=== PATIENT | male | born 1965 | race Caucasian/White ===

== ENCOUNTER 2016-12-05 05:59 | Inpatient (IN) ==
[2016-12-05] MEDS ORDERED: Albuterol 2.5 MG/3 ML NEBULIZER IH ONE (06:28)
[2016-12-05 06:29] LABS: Basophils # 0.1 K/mcL (0.0-0.2); Basophils % 0.6 %; Hematocrit 36.4 % (37.5-50.1); Hemoglobin 12.8 g/dL (12.9-16.9); Immature Granulocytes % 0.6 % (0-4); Lymphocytes # 1.9 K/mcL (0.6-4.6); Lymphocytes % 23.4 %; Mean Corpuscular HGB Conc 35.2 g/dL (31.6-35.5); Mean Corpuscular Hemoglobin 29.1 pg (28.0-33.3); Mean Corpuscular Volume 82.7 fL (83.0-100.0); Mean Platelet Volume 10.2 fL (9.4-12.4); Monocytes # 0.7 K/mcL (0.0-1.3); Neutrophils # 5.5 K/mcL (1.6-8.9); Platelet Count 217 K/mcL (140-400); Red Cell Distribution Width 12.6 % (11.5-14.5); Segmented Neutrophils % 67.4 %
--- NOTE | 2016-12-05 06:29 | Emergency Department Note ---
Disposition Clinical Impression: PAD (peripheral artery disease) Chest pain Qualifiers: Chest pain type: unspecified Qualified Code(s): R07.9 - Chest pain, unspecified Disposition: Admitted As Inpatient Condition: Good Referrals: NONE,PCP [Primary Care Provider] - Forms: ED Satisfaction Letter Time of Disposition: 06:54 Chest Pain HPI - General Chief Complaint: ED Chest Pain Stated Complaint: CP Time Seen by Provider: 12/05/16 06:01 Source: patient Mode of arrival: ambulatory Limitations: no limitations Vital Signs Reviewed: Yes Nursing Notes Reviewed: Yes - History of Present Illness HPI Narrative: Patient presents to the ED ambulatory with his with the chief complaint of chest pain and leg pain. Patient reports that he has a history of peripheral arterial disease and the right leg is "100% blocked off." He states that he was seen and evaluated in a hospital in [place] where they had ordered several tests and diagnosis. However, they were not going to treat him because he was moving to [place]. Denies any history of coronary artery disease. States that he woke up this morning and he felt a heaviness in his chest. Nonradiating, better or worse with nothing. Denies any associated diaphoresis, nausea, vomiting, abdominal pain or shortness of breath. Also complaining of a 3-4 month history of bilateral but right greater than left leg pain which is worse with exertion and better with rest. States it is getting to the point where he hurts even when he is not moving it. Denies fevers Severity scale (1-10): 3 - Related Data Allergies Allergy/AdvReac Type Severity Reaction Status Date / Time No Known Allergies Allergy Verified 12/05/16 06:04 All systems ED: reviewed and negative except as stated. Constitutional: Denies: fever Cardiovascular: Reports: chest pain Respiratory: Denies: dyspnea Gastrointestinal: Denies: abdominal pain, vomiting Musculoskeletal: Denies: back pain Neurological: Denies: headache Chest Pain PMH - Past Medical History Medical history: Reports: COPD, diabetes, hyperlipidemia, hypertension Psychiatric history: Reports: no psych history - Social History Smoking Status: Never smoker Alcohol use: Reports: none Drug use: Reports: marijuana Physical Exam - General Limitations: no limitations General appearance: alert, in no apparent distress - Head Head exam: atraumatic, normocephalic, normal inspection - Eye Eye exam: Present: normal appearance, PERRL, EOMI - ENT ENT exam: normal exam, normal oropharynx, mucous membranes moist - Neck Neck exam: Present: normal inspection, full ROM, trachea midline - Chest Chest inspection: Present: normal inspection, symmetric chest wall rise - Respiratory Respiratory exam: Present: wheezes. Absent: normal lung sounds bilaterally, respiratory distress, accessory muscle use - Cardiovascular Cardiovascular exam: Present: regular rate, normal rhythm, normal heart sounds - Abdominal Exam Abdominal exam: Present: soft, Non-Tender. Absent: tenderness, distention, guarding, rebound, rigidity - Extremities Exam Extremities exam: Present: normal inspection, full ROM. Absent: tenderness, normal capillary refill (delayed), pedal edema - Expanded Lower Extremity Exam Neurovascular/Tendon exam: Present: pulse deficit (PT/DP not palpable but are found with doppler). Absent: normal capillary refill (slightly delayed ) - Back Exam Back exam: Present: normal inspection, full ROM. Absent: tenderness - Neurological Exam Neurological exam: Present: alert, oriented X3 - Psychiatric Psychiatric exam: Present: normal affect, normal mood - Skin Skin exam: Present: warm, dry, intact, normal color Course Course Narrative: 51 year old male with cp. is a vasculopath with reported history of blocked R iliac artery. does have doppler pulses BLE. Strong BUE pulses. Chest heaviness will be further evaluated with lab/ekg/cxr. Patient will be admitted for further cardiac eval and vascular consult. Vital Signs Temperature 97.5 F L 12/05/16 05:59 Pulse Rate 72 12/05/16 05:59 Respiratory Rate 20 12/05/16 05:59 Blood Pressure 183/93 12/05/16 05:59 O2 Sat by Pulse Oximetry 96 12/05/16 05:59 Temperature 97.5 F L 12/05/16 05:59 Pulse Rate 63 12/05/16 06:45 Respiratory Rate 14 12/05/16 06:45 Blood Pressure 184/115 12/05/16 06:45 O2 Sat by Pulse Oximetry 99 12/05/16 06:45 Oxygen Delivery Oxygen Delivery Room Air Chest Pain - Medical Records Medical records reviewed: Yes I reviewed the patient's medical records. - Lab Data Lab results reviewed: Yes I reviewed the patient's lab results. Result diagrams: 12/05/16 06:23 12/05/16 06:23 Lab Results 12/05/16 12/05/16 12/05/16 Range/Units 06:06 06:23 06:23 WBC 8.2 (4.3-11.1) K/mcL RBC 4.40 (4.19-5.50) M/mcL Hgb 12.8 L (12.9-16.9) g/dL Hct 36.4 L (37.5-50.1) % MCV 82.7 L (83.0-100.0) fL MCH 29.1 (28.0-33.3) pg MCHC 35.2 (31.6-35.5) g/dL RDW 12.6 (11.5-14.5) % Plt Count 217 (140-400) K/mcL MPV 10.2 (9.4-12.4) fL Immature Gran % 0.6 (0-4) % Seg Neutrophils % 67.4 % Lymphocytes % 23.4 % Monocytes % 8.0 % Eosinophils % 0.0 % Basophils % 0.6 % Neutrophils # 5.5 (1.6-8.9) K/mcL Lymphocytes # 1.9 (0.6-4.6) K/mcL Monocytes # 0.7 (0.0-1.3) K/mcL Eosinophils # 0.0 (0.0-0.6) K/mcL Basophils # 0.1 (0.0-0.2) K/mcL PT 10.3 (9.4-12.1) Seconds INR 1.0 APTT 26.5 (26.0-36.0) Seconds Sodium (136-145) mEq/L Potassium (3.5-4.5) mEq/L Chloride (98-109) mEq/L Carbon Dioxide (19-29) mEq/L BUN (8-26) mg/dL Creatinine (0.72-1.25) mg/dL Est GFR ( Amer) (> 60) Est GFR (Non-Af Amer) (> 60) BUN/Creatinine Ratio (6-26) Glucose (70-99) mg/dL POC Glucose 179 H (58-89) Calculated Osmolality (280-300) Calcium (8.6-10.8) mg/dL Creatine Kinase (30-200) Units/L Troponin I (0-0.03) ng/mL 12/05/16 12/05/16 Range/Units 06:23 06:23 WBC (4.3-11.1) K/mcL RBC (4.19-5.50) M/mcL Hgb (12.9-16.9) g/dL Hct (37.5-50.1) % MCV (83.0-100.0) fL MCH (28.0-33.3) pg MCHC (31.6-35.5) g/dL RDW (11.5-14.5) % Plt Count (140-400) K/mcL MPV (9.4-12.4) fL Immature Gran % (0-4) % Seg Neutrophils % % Lymphocytes % % Monocytes % % Eosinophils % % Basophils % % Neutrophils # (1.6-8.9) K/mcL Lymphocytes # (0.6-4.6) K/mcL Monocytes # (0.0-1.3) K/mcL Eosinophils # (0.0-0.6) K/mcL Basophils # (0.0-0.2) K/mcL PT (9.4-12.1) Seconds INR APTT (26.0-36.0) Seconds Sodium 137 (136-145) mEq/L Potassium 3.6 (3.5-4.5) mEq/L Chloride 101 (98-109) mEq/L Carbon Dioxide 26 (19-29) mEq/L BUN 12 (8-26) mg/dL Creatinine 0.93 (0.72-1.25) mg/dL Est GFR ( Amer) > 60 (> 60) Est GFR (Non-Af Amer) > 60 (> 60) BUN/Creatinine Ratio 13 (6-26) Glucose 166 H (70-99) mg/dL POC Glucose (58-89) Calculated Osmolality 288 (280-300) Calcium 9.4 (8.6-10.8) mg/dL Creatine Kinase 164 (30-200) Units/L Troponin I 0.01 (0-0.03) ng/mL - Radiology Data Radiology results reviewed: Yes I reviewed the patient's radiology results. - EKG Data EKG attestation: Yes I reviewed and interpreted this EKG. EKG results narrative: Sinus rhythm, rate 66, kofi 185, QRS 96, QTC 404, left axis deviation, no acute ischemic changes. S.B.A.R. - S.B.A.R. Situation: Demographics, MOA Background: Presenting Complaint, Relevant PMH, Meds, & Allergies Assessment: Vital Signs, Course and respsone to treatment, Exam Concerns, Patient/Family Expectation, Pertinant Lab Results, Outstanding Labs Recommendation: Barrier(s) to disposition, Recommendation based on pending studies, treatments, or consults S.B.A.R. Report Given to: Dennis/Danny Attestation Statement - Attestation Attestation: I, Connor Alejo, examined this patient and my medical decision-making was reviewed with the [employer]/PA/Advanced Practice Nurse/Resident Physician. I agree with the documented findings, disposition and treatment plan as described except to the extent set forth below. 51-year-old male presents to emergency department for concerns of chest heaviness. Patient states symptoms started this morning upon waking. Denies diaphoresis, palpitations, syncope. Patient states he has dyspnea on exertion. Patient states he has pain to his bilateral lower extremities with minimal exertion which is chronic for him over the past few months. Patient states he was evaluated by a vascular surgeon in [place] he wanted to perform stenting of his distal aorta and iliac arteries however he states his insurance would not have covered [id number] procedures. Patient returns to [place] for further care and evaluation. No change in his lower extremities over the past week. Patient is mildly hypertensive. EKG showed normal sinus rhythm with rate of 66 without evidence of STEMI. We will obtained a chest x-ray, laboratory evaluation. Patient will be transferred to Dr. Collins pending laboratory evaluation, imaging, reevaluation and disposition.
[2016-12-05 06:32] LABS: Prothrombin Time 10.3 Seconds (9.4-12.1)
[2016-12-05 06:35] LABS: Activated Partial Thrombo Time 26.5 Seconds (26.0-36.0)
[2016-12-05 06:41] LABS: BUN/Creatinine Ratio 13 (6-26); Blood Urea Nitrogen 12 mg/dL (8-26); Calcium 9.4 mg/dL (8.6-10.8); Carbon Dioxide 26 mEq/L (19-29); Chloride 101 mEq/L (98-109); Creatine Kinase 164 Units/L (30-200); Glucose 166 mg/dL (70-99); Osmolality,Calculated 288 (280-300); Potassium 3.6 mEq/L (3.5-4.5); Sodium 137 mEq/L (136-145); eGFR For African Americans > 60 (> 60); eGFR For Non-African Americans > 60 (> 60)
[2016-12-05] MEDS ORDERED: Nitroglycerin 0.4 MG TAB.SUBL SL PRN (06:49)
[2016-12-05] MEDS ORDERED: Aspirin 325 MG TABLET PO ONE (06:50)
--- NOTE | 2016-12-05 08:01 | Emergency Department Note ---
Disposition Clinical Impression: PAD (peripheral artery disease) Chest pain Qualifiers: Chest pain type: unspecified Qualified Code(s): R07.9 - Chest pain, unspecified Disposition: Admitted As Inpatient Condition: Good Referrals: NONE,PCP [Primary Care Provider] - Forms: ED Satisfaction Letter Time of Disposition: 08:01 General Adult HPI - General Chief complaint: ED Chest Pain Stated complaint: CP Time Seen by Provider: 12/05/16 06:01 Source: patient Mode of arrival: ambulatory Limitations: no limitations - History of Present Illness Pain Scale: 3 - Related Data Home Medications Medication Instructions Recorded Confirmed Amlodipine Besylate 2.5 mg PO DAILY 12/05/16 12/05/16 Glimepiride [Amaryl] 4 mg PO BID 12/05/16 12/05/16 Insulin Human Regular 12/05/16 Lisinopril [Zestril] 40 mg PO DAILY 12/05/16 12/05/16 Metoprolol [Lopressor] 100 mg PO BID 12/05/16 12/05/16 Omeprazole Magnesium [Prilosec Otc] 20 mg PO DAILY 12/05/16 12/05/16 Pioglitazone [Actos] 45 mg PO DAILY 12/05/16 12/05/16 cloNIDine HCl [CloNIDine HCl] 0.1 - 0.2 mg PO HS PRN 12/05/16 12/05/16 hydroCHLOROthiazide 25 mg PO DAILY 12/05/16 12/05/16 [Hydrochlorothiazide] Allergies Allergy/AdvReac Type Severity Reaction Status Date / Time No Known Allergies Allergy Verified 12/05/16 06:04 Constitutional: Denies: fever Cardiovascular: Reports: chest pain Respiratory: Denies: dyspnea Gastrointestinal: Denies: abdominal pain, vomiting Musculoskeletal: Denies: back pain Neurological: Denies: headache Past Medical History - Past Medical History Medical history: Reports: COPD, diabetes, hyperlipidemia, hypertension Psychiatric history: Reports: no psych history - Social History Smoking Status: Never smoker Alcohol use: Reports: none Drug use: Reports: marijuana Physical Exam - General Limitations: no limitations General appearance: alert, in no apparent distress Course Course Narrative: Briefly care was signed out by the [facility] team Dr. Butler and Dr. Barron please see her documentation for history of physical decision making assessment plan. The patient had chest pain onset this morning, is he hemodynamically stable with no EKG changes, he was given nitroglycerin and this resolved his chest pain admitted for chest pain rule out, additionally he has claudication bilaterally, he just had a arterial duplex performed. [facility] Arterial duplex performed on 11/06/16: Impression #1diffuse atherosclerotic disease bilaterally #2 occluded right superficial femoral artery #3 no evidence of occlusion or significant stenosis on the left Impression: on the right side findings are suggestive of an flow disease this is likely the result of the occlusion of the superficial femoral artery demonstrated in the duplex exam on the left findings are suggestive of mild bilateral tibial disease. Vital Signs Temperature 97.5 F L 12/05/16 05:59 Pulse Rate 72 12/05/16 05:59 Respiratory Rate 20 12/05/16 05:59 Blood Pressure 183/93 12/05/16 05:59 O2 Sat by Pulse Oximetry 96 12/05/16 05:59 Temperature 97.5 F L 12/05/16 05:59 Pulse Rate 76 12/05/16 07:09 Respiratory Rate 10 12/05/16 07:09 Blood Pressure 157/98 12/05/16 07:09 O2 Sat by Pulse Oximetry 96 12/05/16 07:09 Oxygen Delivery Oxygen Delivery Room Air Medical Decision Making - Lab Data Lab results reviewed: Yes I reviewed the patient's lab results. Result diagrams: 12/05/16 06:23 12/05/16 06:23 Lab Results 12/05/16 12/05/16 12/05/16 Range/Units 06:06 06:23 06:23 WBC 8.2 (4.3-11.1) K/mcL RBC 4.40 (4.19-5.50) M/mcL Hgb 12.8 L (12.9-16.9) g/dL Hct 36.4 L (37.5-50.1) % MCV 82.7 L (83.0-100.0) fL MCH 29.1 (28.0-33.3) pg MCHC 35.2 (31.6-35.5) g/dL RDW 12.6 (11.5-14.5) % Plt Count 217 (140-400) K/mcL MPV 10.2 (9.4-12.4) fL Immature Gran % 0.6 (0-4) % Seg Neutrophils % 67.4 % Lymphocytes % 23.4 % Monocytes % 8.0 % Eosinophils % 0.0 % Basophils % 0.6 % Neutrophils # 5.5 (1.6-8.9) K/mcL Lymphocytes # 1.9 (0.6-4.6) K/mcL Monocytes # 0.7 (0.0-1.3) K/mcL Eosinophils # 0.0 (0.0-0.6) K/mcL Basophils # 0.1 (0.0-0.2) K/mcL PT 10.3 (9.4-12.1) Seconds INR 1.0 APTT 26.5 (26.0-36.0) Seconds Sodium (136-145) mEq/L Potassium (3.5-4.5) mEq/L Chloride (98-109) mEq/L Carbon Dioxide (19-29) mEq/L BUN (8-26) mg/dL Creatinine (0.72-1.25) mg/dL Est GFR ( Amer) (> 60) Est GFR (Non-Af Amer) (> 60) BUN/Creatinine Ratio (6-26) Glucose (70-99) mg/dL POC Glucose 179 H (58-89) Calculated Osmolality (280-300) Calcium (8.6-10.8) mg/dL Creatine Kinase (30-200) Units/L Troponin I (0-0.03) ng/mL 12/05/16 12/05/16 Range/Units 06:23 06:23 WBC (4.3-11.1) K/mcL RBC (4.19-5.50) M/mcL Hgb (12.9-16.9) g/dL Hct (37.5-50.1) % MCV (83.0-100.0) fL MCH (28.0-33.3) pg MCHC (31.6-35.5) g/dL RDW (11.5-14.5) % Plt Count (140-400) K/mcL MPV (9.4-12.4) fL Immature Gran % (0-4) % Seg Neutrophils % % Lymphocytes % % Monocytes % % Eosinophils % % Basophils % % Neutrophils # (1.6-8.9) K/mcL Lymphocytes # (0.6-4.6) K/mcL Monocytes # (0.0-1.3) K/mcL Eosinophils # (0.0-0.6) K/mcL Basophils # (0.0-0.2) K/mcL PT (9.4-12.1) Seconds INR APTT (26.0-36.0) Seconds Sodium 137 (136-145) mEq/L Potassium 3.6 (3.5-4.5) mEq/L Chloride 101 (98-109) mEq/L Carbon Dioxide 26 (19-29) mEq/L BUN 12 (8-26) mg/dL Creatinine 0.93 (0.72-1.25) mg/dL Est GFR ( Amer) > 60 (> 60) Est GFR (Non-Af Amer) > 60 (> 60) BUN/Creatinine Ratio 13 (6-26) Glucose 166 H (70-99) mg/dL POC Glucose (58-89) Calculated Osmolality 288 (280-300) Calcium 9.4 (8.6-10.8) mg/dL Creatine Kinase 164 (30-200) Units/L Troponin I 0.01 (0-0.03) ng/mL - Radiology Data Radiology results reviewed: Yes I reviewed the patient's radiology results. Chest X-Ray 12/05/16 06:05 IMPRESSION: Negative portable chest. D/ / Matt Will MD / Matt Will MD Interpreting Provider: Matt Will MD Attestation Statement - Attestation Attestation: I examined this patient and my medical decision-making was reviewed with the Resident Physician. I agree with the documented findings, disposition and treatment plan as described except to the extent set forth below. Patient signed out to us pending workup and admission. Patient had presented during the night with chest pain. He was pain-free on our evaluation. Only complaining of leg pain. He had been to a hospital in [place] a couple weeks ago was diagnosed with peripheral arterial disease. Plan. ABIs and arterial Dopplers reviewed. Cardiac workup here unremarkable. He is admitted to medicine for further cardiac workup.
--- NOTE | 2016-12-05 10:39 | Internal Med History&Physical ---
Date of Encounter: 12/05/16 Time of Encounter: 09:00 Assessment and Plan (1) Unstable angina pectoris Current visit: Yes Status: Acute Patient had new onset typical substernal/precordial chest pain that started at rest, lasted more than 30 minutes and eventually was relieved with nitroglycerin. Altogether pointed diagnosis of unstable angina. He does have severe peripheral arterial disease and therefore I suspect that he also has coronary artery disease. I will admit the patient to the hospital. Trend troponin. Place a heart monitor. Check echocardiogram. We will consult cardiology. I discussed the case with cardiology recommends starting heparin drip for both unstable angina and severe peripheral vascular disease. We will start daily aspirin, continue metoprolol, continue statin, start heparin drip per ACS protocol. He is at high risk for morbidity, mortality and complications due to continuous heparin infusion requiring frequent monitoring of blood coagulation parameters. (2) Superficial femoral artery occlusion Current visit: Yes Status: Acute There is no evidence of critical limb ischemia. He does have palpable pulses at both feet and skin is warm. There is no loss of sensation. BRENDEN and arterial Dopplers however revealed severe peripheral vascular disease particularly complete occlusion of the right superficial femoral vein. I will start a heparin drip per ACS protocol to prevent any further thrombosis and worsening leg ischemia. We will consult vascular surgery. (3) Essential hypertension Current visit: Yes Status: Acute This is uncontrolled. We will treat him with metoprolol, lisinopril and HCTZ. Hold amlodipine. I will hold clonidine for now which he was taking as needed due to possible interaction with beta blockers. We will monitor blood pressure closely. (4) PAD (peripheral artery disease) Current visit: Yes Status: Acute Start aspirin and statin. Consult vascular surgery. (5) Type 2 diabetes mellitus Current visit: Yes Status: Acute Check A1c. Diabetic diet. Start Levemir. Start NovoLog sliding scale. Stop oral antidiabetic medication. Qualifiers: Diabetes mellitus complication status: with circulatory complication Diabetes mellitus complication detail: with peripheral angiopathy without gangrene Diabetes mellitus extermination inspector insulin use: without extermination inspector use Qualified Code(s): E11.51 - Type 2 diabetes mellitus with diabetic peripheral angiopathy without gangrene (6) DVT prophylaxis Current visit: Yes Status: Acute Internal Medicine - H&P: HPI Chief complaint: Chest pain Admitted From: Emergency Dept Plans for Post Hospital Care: Home History of present illness: Mr. Dejesus is a 51 year old male with past medical history significant for hypertension and peripheral vascular disease who presented to the hospital for chest pain. He reports severe right leg pain and he had recently had vascular studies done at a hospital in [place] which found a blockage of one of the arteries in the right leg. This morning at 2 AM he woke up with moderate, 6/10 in intensity pressure-like left-sided chest pain not associated with shortness of breath and diaphoresis. He was brought to the hospital and was given sublingual nitroglycerin and DuoNeb which relieved the pain. Review of systems positive for right leg "claudication, chest pain, neck pain, shortness of breath and wheezing. Otherwise 10 systems reviewed and found negative. Past medical history: peripheral vascular disease, COPD, hypertension, type 2 diabetes Surgical history: Rotator cuff repair Family history: Patient's mother suffered with myocardial infarction at age 42 and at age 62 Social history: He quit smoking 6 years ago, denies alcohol abuse, denies IV drug use. Uses marijuana for pain. Past Med Surg Social Fam HX - Past Medical History Medical history: COPD, diabetes, hyperlipidemia, hypertension Psychiatric history: no psych history - Social History Smoking Status: Never smoker Alcohol use: none Drug use: marijuana Internal Medicine - H&P: Meds Amlodipine Besylate 2.5 mg PO DAILY 12/05/16 [History] Glimepiride [Amaryl] 4 mg PO BID 12/05/16 [History] Insulin Human Regular [HumuLIN R] 10 unit SQ DAILY PRN 12/05/16 [History] Lisinopril [Zestril] 40 mg PO DAILY 12/05/16 [History] Metoprolol [Lopressor] 100 mg PO BID 12/05/16 [History] Omeprazole Magnesium [Prilosec Otc] 20 mg PO DAILY 12/05/16 [History] Pioglitazone [Actos] 45 mg PO DAILY 12/05/16 [History] cloNIDine HCl [CloNIDine HCl] 0.1 - 0.2 mg PO HS PRN 12/05/16 [History] hydroCHLOROthiazide [Hydrochlorothiazide] 25 mg PO DAILY 12/05/16 [History] 3 Allergy/AdvReac Type Severity Reaction Status Date / Time No Known Allergies Allergy Verified 12/05/16 06:04 All Systems PM: A 10-system review of systems was performed and is negative for pertinent findings except as documented above in the HPI. - Constitutional Vitals: Temp Pulse Resp BP Pulse Ox 97.5 F L 68 15 170/109 95 12/05/16 05:59 12/05/16 09:42 12/05/16 09:42 12/05/16 09:42 12/05/16 09:42 General appearance: Present: A&O X 3, no acute distress - Eye Eye exam: Present: PERRL, conjuntiva pink, sclera anicteric Pupils: Present: PERRL - Respiratory Respiratory exam: Present: wheezes. Absent: accessory muscle use, rales, rhonchi - Cardiovascular Cardiovascular exam: Present: RRR, +S1, +S2. Absent: diastolic murmur, gallop, rubs, systolic murmur - GI/Abdominal GI/Abdominal exam: Present: normal bowel sounds, soft, no peritoneal signs. Absent: distended, tenderness - Extremities Exam Extremities exam: Present: warm, radial pulses palpable and symmetrical. Absent : calf tenderness, cyanotic, pedal edema Additional comments: Dorsalis pedis pulses palpable bilaterally but severely diminished on the right side. Femoral pulses are equal on both sides. - Skin Skin exam: Present: dry, intact, warm (Both feet warm and dry with no cyanosis. No skin changes.) Internal Med - H&P Results - Labs CBC & Chem 7: 12/05/16 06:23 12/05/16 06:23 - EKG Data -: EKG Interpreted by Myself EKG shows normal: sinus rhythm (66 bpm), axis, intervals, QRS complexes, ST-T waves Rate: normal - Impressions Vascular studies reviewed in the medical records from [facility] in [place], [place] Study performed on 11/06/2016 Bilateral lower extremity are part 1-year-old duplex examination: Right side common iliac and external iliac common femoral and profunda femoral artery normal and show normal flow velocities. The right superficial femoral artery is occluded. There is decreased flow to the tibial vessels and diffuse atherosclerotic disease throughout the right lower extremity. On the left side there is diffuse atherosclerotic disease. The common iliac external iliac common femoral profunda femoral superficial femoral and popliteal arteries show normal flow. The tibial vessels are patent patent. There is decreased flow velocity in the dorsalis pedis artery Impression: Diffuse atherosclerotic disease bilaterally Occluded right superficial femoral artery No evidence of occlusion or significant stenosis on the left. BRENDEN report from 11/06/2016: Impression: 1. right side findings suggestive of inflow disease consistent with superficial femoral artery occlusion demonstrated in the duplex study 2. Left-sided findings suggestive of mild bilateral tibial disease
[2016-12-05] MEDS ORDERED: Acetaminophen 325 MG TABLET PO PRN (10:53)
[2016-12-05] MEDS ORDERED: *HR* Morphine 2 MG/ML SYRINGE IVP PRN (10:53)
[2016-12-05] MEDS ORDERED: *HR* OxyCODONE Immed Rel 5 MG TABLET PO PRN (10:53)
[2016-12-05] MEDS ORDERED: Naloxone 0.4 MG/ML INJ IVP PRN (10:53)
[2016-12-05] MEDS ORDERED: Ondansetron 4 MG/2 ML VIAL IVP PRN (10:53)
[2016-12-05] MEDS ORDERED: D5% in Water 1,000 ML IVC PRN (10:58)
[2016-12-05] MEDS ORDERED: Dextrose Gel 15 GM PO PRN ×2 (10:58)
[2016-12-05] MEDS ORDERED: *HR* Dextrose 50 % in Water (Syg) 50 ML SYRINGE IVP PRN (10:58)
[2016-12-05] MEDS ORDERED: FLUARIX QUAD 2017-18 36MOS UP/PF 0.5 ML SYRINGE IM ONE (10:59)
[2016-12-05] MEDS ORDERED: 0.9 % Sodium Chloride 1,000 ML IVC SCH (11:00)
[2016-12-05] MEDS: Insulin LISPRO 300 UNITS/3 ML VIAL SQ SCH ×5 (12:07→20:32)
[2016-12-05] MEDS: Metoprolol 100 MG TABLET PO SCH ×2 (12:07→20:31)
[2016-12-05] MEDS: hydroCHLOROthiazide 25 MG TABLET PO SCH (12:07)
[2016-12-05] MEDS: Lisinopril 20 MG TABLET PO SCH (12:07)
--- NOTE | 2016-12-05 13:20 | Cardiology Consult Note ---
Date of Encounter: 12/05/16 Time of Encounter: 13:18 Assessment and Plan (1) Unstable angina pectoris Current Visit: Yes Status: Acute Symptoms concerning for unstable angina--chest pressure that woke him from sleep , relieved with nitro in ED. Reports worsening dyspnea on exertion. Multiple risk factors for CAD--Family hx, prior tobacco abuse, DM, HTN, known PAD. EKG reviewed--inferior leads flipped T waves. Initial troponin negative--trend for total of 3. Check echo to evaluate structure and function. Recommend [facility] tomorrow (pt ate lunch). R/B/A discussed. Pt agrees to proceed. ASA, Statin, BB. (2) PAD (peripheral artery disease) Current Visit: Yes Status: Acute Per pt, bilateral PAD diagnosed in [place] with vascular surgery planned. Will request records. ASA and Statin. (3) Essential hypertension Current Visit: Yes Status: Acute 170/109 at bedside. Increase Norvasc to 10mg daily. Continue BB, Lisinopril, HCTZ. Discussion w patient/family: The assessment and plan as outlined above was discussed with the patient and/or family members who expressed understanding and agreement. All questions were answered. Thank you for involving us in the care of your patient. Please call with any questions. I will discuss all the above with Dr. Aldridge and make changes as necessary. History of Present Illness Consult date: 12/05/16 Requesting physician: Harpreet Moore Consult reason: Chest pain Chief complaint: chest pain History of present illness: Mr. Dejesus is a 51 year old male with PMH of hypertension, DM, and peripheral vascular disease who presented to the hospital for chest pain. He reports severe right leg pain and he had recently had vascular studies done at a hospital in [place] which found blockages in both legs--tentatively scheduled to have ballooning/stenting of his lower extremities. He was referred to see cardiology prior to vascular surgery, not yet seen. This morning at 2 AM he woke up with moderate, 6/10 in intensity pressure-like left-sided chest pain. He was brought to the hospital and was given sublingual nitroglycerin and DuoNeb which relieved the pain. He reports worsening dyspnea since April. Activity also limited because of his claudication symptoms. He is a prior smoker , quit approximately 10 years ago. He reports his mother had his first [place] at age 42, at age 60 from another [place]. Initial troponin negative. Past Med Surg Social Fam HX - Past Medical History Medical history: COPD, diabetes, hyperlipidemia, hypertension, peripheral artery disease Psychiatric history: no psych history - Past Surgical History Surgical History: orthopedic, other - Social History Smoking Status: Never smoker Smokeless Tobacco Status: No Alcohol use: none Drug use: marijuana Medications and Allergies Amlodipine Besylate 2.5 mg PO DAILY 12/05/16 [History] Glimepiride [Amaryl] 4 mg PO BID 12/05/16 [History] Insulin Human Regular [HumuLIN R] 10 unit SQ DAILY PRN 12/05/16 [History] Lisinopril [Zestril] 40 mg PO DAILY 12/05/16 [History] Metoprolol [Lopressor] 100 mg PO BID 12/05/16 [History] Omeprazole Magnesium [Prilosec Otc] 20 mg PO DAILY 12/05/16 [History] Pioglitazone [Actos] 45 mg PO DAILY 12/05/16 [History] cloNIDine HCl [CloNIDine HCl] 0.1 - 0.2 mg PO HS PRN 12/05/16 [History] hydroCHLOROthiazide [Hydrochlorothiazide] 25 mg PO DAILY 12/05/16 [History] 3 Allergy/AdvReac Type Severity Reaction Status Date / Time No Known Allergies Allergy Verified 12/05/16 06:04 All Systems Review: A 10-system review of systems was performed and is negative for pertinent findings except as documented above in the HPI. - Constitutional Constitutional: fatigue - Cardiovascular Cardiovascular: as per HPI, chest pain at rest, claudication, dyspnea on exertion - Respiratory Respiratory: dyspnea Physical Examination Vital Signs, Last 4 Hours Pulse Resp BP Pulse Ox 12/05/16 09:42 68 15 170/109 95 Vital Signs Temp Pulse Resp BP Pulse Ox 12/05/16 09:42 68 15 170/109 95 12/05/16 08:21 63 14 152/111 95 12/05/16 07:09 76 10 157/98 96 12/05/16 06:45 63 14 184/115 99 12/05/16 06:38 20 95 12/05/16 05:59 97.5 F L 72 20 183/93 96 Intake and Output 12/04/16 12/05/16 12/05/16 23:59 07:59 15:59 Other: Weight 88.904 kg Blood Glucose* 179 156 Patient Weight 12/05/16 23:59 Weight 88.904 kg General: Conversant, No Apparent Distress HEENT: Atraumatic, Normocephaly, Mucus Membranes Moist Neck: No JVD, Normal carotid pulses Cardiac: Reg Rate and Rhythm, Normal S1 and S2, No Murmur Lungs: Normal Breath Sounds, No Wheeze, Rales, Rhonchi Neuro: Alert and responsive, No focal deficits noted Abdomen: Soft, Non-Tender Skin: No rashes noted on visualized skin Musculoskeletal: No Chest Wall Tenderness Extremities: No Clubbing, No Cyanosis, No Edema, Normal Pulses Results 12/05/16 06:23 12/05/16 06:23 Short CBC 12/05/16 Range/Units 06:23 WBC 8.2 (4.3-11.1) K/mcL Hgb 12.8 L (12.9-16.9) g/dL Hct 36.4 L (37.5-50.1) % Plt Count 217 (140-400) K/mcL Neutrophils # 5.5 (1.6-8.9) K/mcL BMP 12/05/16 Range/Units 06:23 Sodium 137 (136-145) mEq/L Potassium 3.6 (3.5-4.5) mEq/L Chloride 101 (98-109) mEq/L Carbon Dioxide 26 (19-29) mEq/L BUN 12 (8-26) mg/dL Creatinine 0.93 (0.72-1.25) mg/dL Glucose 166 H (70-99) mg/dL Calcium 9.4 (8.6-10.8) mg/dL Cardiac Enzymes 12/05/16 Range/Units 06:23 Troponin I 0.01 (0-0.03) ng/mL Impressions Chest X-Ray 12/05/16 06:05 IMPRESSION: Negative portable chest. D/ / Matt Will MD / Matt Will MD Interpreting Provider: Matt Will MD Active Medications Acetaminophen (Tylenol) 650 mg PO Q6HR PRN PRN Reason: Mild Pain (1-3) Stop: 06/06/17 10:54 Aspirin (Aspirin Ec) 81 mg PO DAILY [facility] Stop: 06/07/17 09:01 Dextrose/Water (Dextrose 50% (Syg)) 25 ml IVP AD PRN PRN Reason: Hypoglycemia Stop: 06/06/17 10:59 Glucagon (Glucagen) 1 mg IM ONCE PRN PRN Reason: Hypoglycemia Stop: 06/06/17 10:59 Glucose (Gluctose) 15 gm PO ONCE PRN PRN Reason: Hypoglycemia Stop: 06/06/17 10:59 Glucose (Gluctose) 30 gm PO ONCE PRN PRN Reason: Hypoglycemia Stop: 06/06/17 10:59 Heparin Sodium (Porcine) (Heparin) 5,000 unit SQ Q8HCO [facility] Stop: 06/06/17 14:01 Hydrochlorothiazide (Hydrochlorothiazide) 25 mg PO DAILY [facility] PRN Reason: Protocol Stop: 06/06/17 11:01 Last Admin: 12/05/16 12:07 Dose: 25 mg Sodium Chloride (0.9 % Sodium Chloride) 1,000 mls @ 100 mls/hr IVC .Q10H [facility] Stop: 12/05/16 20:59 Last Admin: 12/05/16 11:25 Dose: 100 mls/hr Dextrose (Dextrose 5%) 1,000 mls @ 100 mls/hr IVC .Q10H PRN PRN Reason: HYPOGLYCEMIA Stop: 06/06/17 10:59 Insulin Detemir (Levemir) 10 unit SQ HS [facility] Stop: 06/06/17 21:01 Insulin Human Lispro (Humalog) 4 units 0.05 units/kg (4 units) SQ TIDWM [facility] Stop: 06/06/17 12:01 Last Admin: 12/05/16 12:07 Dose: 4 units Insulin Human Lispro (Humalog) 0 units SQ ACHS [facility] PRN Reason: Protocol Stop: 06/06/17 12:01 Last Admin: 12/05/16 12:08 Dose: 2 units Lisinopril (Zestril) 40 mg PO DAILY [facility] Stop: 06/06/17 11:01 Last Admin: 12/05/16 12:07 Dose: 40 mg Metoprolol Tartrate (Lopressor) 100 mg PO BID [facility] Stop: 06/06/17 11:01 Last Admin: 12/05/16 12:07 Dose: 100 mg Morphine Sulfate (Morphine Sulfate) 2 mg IVP Q4HR PRN PRN Reason: Severe Pain (7-10) Stop: 06/06/17 10:54 Naloxone HCl (Narcan) 0.4 mg IVP Q2MIN PRN PRN Reason: Opioid Reversal Stop: 06/06/17 10:54 Nitroglycerin (Nitroglycerin) 0.4 mg SL Q5MIN PRN PRN Reason: Chest Pain Stop: 06/06/17 06:50 Omeprazole (Prilosec) 20 mg PO 0630 LISA Stop: 06/06/17 11:01 Last Admin: 12/05/16 12:12 Dose: 20 mg Ondansetron HCl (Zofran) 4 mg IVP Q8HR PRN PRN Reason: Nausea And Vomiting Stop: 06/06/17 10:54 Oxycodone HCl (Roxicodone) 5 mg PO Q6HR PRN PRN Reason: Moderate Pain (4-6) Stop: 06/06/17 10:54 - EKG Interpretation EKG results cardiology: personally reviewed (SR, inferior ST abnormalities) Consult Discharge Plan - Plan Referrals: NONE,PCP [Primary Care Provider] -
[2016-12-05] MEDS ORDERED: *HR* Heparin 5,000 UNIT/ML VIAL SQ SCH (14:00)
[2016-12-05] MEDS ORDERED: *HR* Heparin 5,000 UNIT/ML VIAL IVP PRN ×2 (15:11)
[2016-12-05] MEDS ORDERED: *HR* Heparin 5,000 UNIT/ML VIAL IVP ONE (15:11)
[2016-12-05] MEDS: Heparin 25,000 UNIT/500 ML D5W 25,000 UNIT/500 ML MLS IVC SCH (16:13)
[2016-12-05 16:41] LABS: Mean Corpuscular HGB Conc 35.1 g/dL (31.6-35.5); Mean Corpuscular Hemoglobin 29.3 pg (28.0-33.3); Mean Corpuscular Volume 83.3 fL (83.0-100.0); Mean Platelet Volume 10.3 fL (9.4-12.4); Platelet Count 216 K/mcL (140-400); Red Blood Count 4.44 M/mcL (4.19-5.50); Red Cell Distribution Width 12.8 % (11.5-14.5)
[2016-12-05 16:54] LABS: Prothrombin Time 11.2 Seconds (9.4-12.1)
[2016-12-05 16:56] LABS: Activated Partial Thrombo Time 26.2 Seconds (26.0-36.0)
--- NOTE | 2016-12-05 17:22 | Electrocardiograph Report ---
[place] 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
--- NOTE | 2016-12-05 19:10 | Vascular/Endovasc Consult Note ---
Date of Encounter: 12/05/16 Time of Encounter: 15:00 Assessment and Plan (1) Atherosclerosis of [place] arteries of extremities with intermittent claudication, bilateral legs Current Visit: Yes Status: Chronic The pathophysiology and natural history of peripheral vascular disease was discussed with the patient and all questions were answered. The patient reports disabling bilateral lower extremity claudication at 30 yards. He denies rest pain, ulceration or gangrene. He has a diminished pulse exam. His right BRENDEN is 0.60. His left BRENDEN is 0.54. His ABIs are consistent with moderate disease bilaterally. His arterial duplex reveals a right superficial femoral artery occlusion. He likely has bilateral inflow disease as well. Recommend that he begin aspirin 81mg daily. He has no evidence of acute limb threatening ischemia. Will await further evaluation and resolution of his acute chest pain. He will ultimately require an angiogram for further evaluation. 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 Dejesus is a 51 year old male with a history of hypertension and diabetes who present to the ER today with complaint of chest pain. During his evaluation , he reported disabling claudication. Vascular surgery was consulted for further evaluation. The patient reports that he was undergoing evaluation for claudication in [place], but is currently living in [place]. He reports claudication at 30 yards. He denies rest pain, ulceration or gangrene. He reports that his symptoms occur in his bilateral calves. He reports that his symptoms resolve after 10-15 minutes. His symptoms are worst when walking uphill. He currently deneis chest pain at rest, but reports chest pain with exertion. He denies shortness of breath. Past Med Surg Social Fam HX - Past Medical History Medical history: COPD, diabetes, hyperlipidemia, hypertension, peripheral artery disease Psychiatric history: no psych history - Past Surgical History Surgical History: orthopedic, other - Social History Smoking Status: Never smoker Smokeless Tobacco Status: No Alcohol use: none Drug use: marijuana Medications and Allergies Amlodipine Besylate 2.5 mg PO DAILY 12/05/16 [History] Glimepiride [Amaryl] 4 mg PO BID 12/05/16 [History] Insulin Human Regular [HumuLIN R] 10 unit SQ DAILY PRN 12/05/16 [History] Lisinopril [Zestril] 40 mg PO DAILY 12/05/16 [History] Metoprolol [Lopressor] 100 mg PO BID 12/05/16 [History] Omeprazole Magnesium [Prilosec Otc] 20 mg PO DAILY 12/05/16 [History] Pioglitazone [Actos] 45 mg PO DAILY 12/05/16 [History] cloNIDine HCl [CloNIDine HCl] 0.1 - 0.2 mg PO HS PRN 12/05/16 [History] hydroCHLOROthiazide [Hydrochlorothiazide] 25 mg PO DAILY 12/05/16 [History] 3 Allergy/AdvReac Type Severity Reaction Status Date / Time No Known Allergies Allergy Verified 12/05/16 06:04 All Systems Review: A 10-system review of systems was performed and is negative for pertinent findings except as documented above in the HPI. Exam Vital Signs, Last 4 Hours Temp Pulse Resp BP Pulse Ox 12/05/16 17:01 98.0 F 72 16 163/78 97 General: Present: Conversant, No Apparent Distress, Well nourished HEENT: Present: Atraumatic, Normocephaly, Trachea midline, Pupils equal Neck: Absent: JVD, Left Carotid bruit, Right Carotid bruit Cardiac: Present: Reg Rate and Rhythm, Normal S1 and S2, No Murmur Lungs: Present: Normal Breath Sounds, No Wheeze, Rales, Rhonchi Neuro: Present: Alert and responsive, No focal deficits noted, Motor nerves grossly intact, Sensory nerves grossly intact Abdomen: Present: Soft, Non-tender. Absent: Masses Vascular: Present: Normal capillary refill, Pulse, absent (bilateral popliteal dorsalis pedis and posterior tibial pulses), Pulse, diminished (bilateral femoral pulses 1+), Color/Temperature (warm). Absent: Clubbing, Cyanosis, Edema Consult Discharge Plan - Plan Referrals: NONE,PCP [Primary Care Provider] -
[2016-12-05 19:26] LABS: Hemoglobin A1C 6.7 %
[2016-12-05] MEDS: Insulin DETEMIR 100 UNIT/ML X5UNITS SQ SCH (20:32)
[2016-12-06 08:00] LABS: Basophils % 0.6 %; Hematocrit 37.6 % (37.5-50.1); Hemoglobin 13.2 g/dL (12.9-16.9); Immature Granulocytes % 0.6 % (0-4); Lymphocytes # 1.7 K/mcL (0.6-4.6); Lymphocytes % 26.9 %; Mean Corpuscular HGB Conc 35.1 g/dL (31.6-35.5); Mean Corpuscular Hemoglobin 29.1 pg (28.0-33.3); Mean Corpuscular Volume 82.8 fL (83.0-100.0); Mean Platelet Volume 10.7 fL (9.4-12.4); Monocytes # 0.5 K/mcL (0.0-1.3); Monocytes % 7.7 %; Neutrophils # 4.1 K/mcL (1.6-8.9); Platelet Count 204 K/mcL (140-400); Red Blood Count 4.54 M/mcL (4.19-5.50); Red Cell Distribution Width 12.8 % (11.5-14.5); Segmented Neutrophils % 64.2 %
[2016-12-06 08:22] LABS: BUN/Creatinine Ratio 11 (6-26); Blood Urea Nitrogen 9 mg/dL (8-26); Calcium 9.9 mg/dL (8.6-10.8); Carbon Dioxide 30 mEq/L (19-29); Chloride 101 mEq/L (98-109); Chol/HDL Ratio 4.5 (0-4.9); Cholesterol 162 mg/dL (< 200); Glucose 168 mg/dL (70-99); HDL Cholesterol 36 mg/dL (40-59); LDL Cholesterol,Calculated 92 mg/dL (0-99); Osmolality,Calculated 289 (280-300); Potassium 3.8 mEq/L (3.5-4.5); Sodium 138 mEq/L (136-145); Triglycerides 168 mg/dL (< 150); eGFR For African Americans > 60 (> 60); eGFR For Non-African Americans > 60 (> 60)
--- NOTE | 2016-12-06 08:57 | Internal Med Progress Note ---
Date of Encounter: 12/06/16 Time of Encounter: 08:00 - Assessment and plan (1) Unstable angina pectoris Current Visit: Yes Status: Acute Assessment and plan: He did have unstable angina and he is very high risk fro ACS with severe PAD, HTN and former smoker so far negative troponin Cont heparin gtt for now Cont ASA and Statin Card consuted Scheduled for cardiac cath later today (2) Superficial femoral artery occlusion Current Visit: Yes Status: Acute Assessment and plan: Reviewed arterial doppler studies - showed diffuse atherosclerosis disease b/l, more significant on Rt side. Occluded Rt superfical fem artery nticed But pt does not have any ischemic signs cont Heparin gtt.. Cont anti platelets Vascular surgery consulted Need further work up with Angiogram Since he is ging for cardiac cath now, he can have angigram done as an out pt will talk to vascular surgery (3) PAD (peripheral artery disease) Current Visit: Yes Status: Acute Assessment and plan: see above (4) Essential hypertension Current Visit: Yes Status: Chronic Assessment and plan: resumed all home meds (5) Atherosclerosis of [place] arteries of extremities with intermittent claudication, bilateral legs Current Visit: Yes Status: Chronic Assessment and plan: on ASA + Statin (6) Type 2 diabetes mellitus Current Visit: Yes Status: Chronic Assessment and plan: HbA1C 6.7 Cont Levemir + ISS Qualifiers: Diabetes mellitus complication status: with circulatory complication Diabetes mellitus complication detail: with peripheral angiopathy without gangrene 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 Dejesus is a 51 year old male with past medical history significant for hypertension and peripheral vascular disease who presented to the hospital for chest pain. He also reported severe right leg pain and he had recently had vascular studies done at a hospital in [place] which found a blockage of one of the arteries in the right leg. The day he came into ER at 2 AM he woke up with moderate, 6/10 in intensity pressure-like left-sided chest pain not associated with shortness of breath and diaphoresis. He was brought to the hospital and was given sublingual nitroglycerin and DuoNeb which relieved the pain. He was placed on Heparin gtt.. Now his CP completely resolved. However he still c/o b/l LE pain - Constitutional Vitals: Temp Pulse Resp BP Pulse Ox 97.6 F 71 20 160/90 93 12/06/16 06:49 12/06/16 06:49 12/06/16 06:49 12/06/16 06:49 12/06/16 06:49 General appearance: Present: A&O X 3, no acute distress - Head Head exam: Present: atraumatic, normal inspection - Respiratory Respiratory exam: Present: CTAB. Absent: accessory muscle use, rales, rhonchi, wheezes - Cardiovascular Cardiovascular exam: Present: RRR, +S1, +S2. Absent: diastolic murmur, gallop, rubs, systolic murmur - GI/Abdominal GI/Abdominal exam: Present: normal bowel sounds, soft, no peritoneal signs. Absent: distended, tenderness - Extremities Exam Extremities exam: Absent: calf tenderness, pedal edema, tenderness Additional comments: Pulses are palpable and diminished in b/l LE distally. No signs of ischemia noticed - Back Exam Back exam: Absent: CVA tenderness (L), tenderness, vertebral tenderness - Neurological Exam Neurological exam: Present: alert, oriented X3 - Psychiatric Psychiatric exam: Present: normal affect, normal mood Internal Medicine: Result - Labs CBC & Chem 7: 12/06/16 07:33 12/06/16 07:33 Labs: Short CBC 12/05/16 12/06/16 Range/Units 16:22 07:33 WBC 7.0 6.4 (4.3-11.1) K/mcL Hgb 13.0 13.2 (12.9-16.9) g/dL Hct 37.0 L 37.6 (37.5-50.1) % Plt Count 216 204 (140-400) K/mcL Neutrophils # 4.1 (1.6-8.9) K/mcL BMP 12/06/16 07:33 Sodium 138 Potassium 3.8 Chloride 101 Carbon Dioxide 30 H BUN 9 Creatinine 0.84 Glucose 168 H Calcium 9.9 Cardiac Enzymes 12/05/16 12/05/16 Range/Units 15:17 15:17 Troponin I 0.00 0.00 (0-0.03) ng/mL - ABG Interpretation ABG results: PT/INR, D-dimer PT 11.2 Seconds (9.4-12.1) 10/17/17 16:22 Consult Discharge Plan - Plan Referrals: NONE,PCP [Primary Care Provider] -
[2016-12-06] MEDS: Metoprolol 100 MG TABLET PO SCH ×2 (09:59→22:04)
[2016-12-06] MEDS: Lisinopril 20 MG TABLET PO SCH (09:59)
[2016-12-06] MEDS: hydroCHLOROthiazide 25 MG TABLET PO SCH (09:59)
[2016-12-06] MEDS: Aspirin Enteric Coated 81 MG Tablet PO SCH (09:59)
[2016-12-06] MEDS: amLODIPine 5 MG TABLET PO SCH (10:00)
[2016-12-06] MEDS: Insulin LISPRO 300 UNITS/3 ML VIAL SQ SCH ×7 (10:02→22:05)
[2016-12-06] MEDS: Heparin 25,000 UNIT/500 ML D5W 25,000 UNIT/500 ML MLS IVC SCH (12:12)
--- NOTE | 2016-12-06 13:04 | Pre-Sedation Evaluation ---
Pre-sedation evaluation - Pre-sedation checklist Date of procedure: 12/06/16 Procedure: Heart Cath Recent Vitals: Last Vital Signs Temp 97.9 F 12/06/16 11:31 Pulse 79 12/06/16 11:31 Resp 19 12/06/16 11:31 BP 174/89 12/06/16 11:31 Pulse Ox 93 12/06/16 11:31 H&P (including ROS) documented in medical record: Yes Previous reaction to sedatives/anesthetics: No Dietary Status: NPO after Midnight ASA Classification *see protocol: CLASS II-Mild systemic disease Plan of Care: Pt appropriate candidate for procedure/moderate/conscious sedation , Risks/benefits of procedure/sedation discussed w/ patient/family
--- NOTE | 2016-12-06 14:04 | Vascular/Endovas Progress Note ---
Date of Encounter: 12/06/16 Time of Encounter: 14:00 - Assessment and plan (1) Atherosclerosis of [place] arteries of extremities with intermittent claudication, bilateral legs Current Visit: Yes Status: Chronic The reports peripheral vascular disease with disabling claudication at 30 yards. He denies rest pain, ulceration or gangrene. His ABIs were repeated at [facility] His RABI is 0.71 and his LABI is 0.96. His RABI is consistent with a right superficial femoral artery occlusion. He will continue with aspirin 81mg daily. He has no evidence of acute limb threatening ischemia. He is scheduled for a left heart cath today. Echocardiogram reveals LVEF >60%. Will begin Cilostazol 100mg BID. He may then follow-up in vascular clinic for further evaluation after discharge. The patient was advised to begin a walking regimen. (2) Chest pain Current Visit: Yes Status: Acute No chest pain today. He is scheduled for a left heart cath. Qualifiers: Chest pain type: unspecified Qualified Code(s): R07.9 - Chest pain, unspecified (3) Essential hypertension Current Visit: Yes Status: Chronic (4) Type 2 diabetes mellitus Current Visit: Yes Status: Chronic Qualifiers: Diabetes mellitus complication status: with circulatory complication Diabetes mellitus complication detail: with peripheral angiopathy without gangrene Diabetes mellitus terminologist insulin use: without terminologist use Qualified Code(s): E11.51 - Type 2 diabetes mellitus with diabetic peripheral angiopathy without gangrene (5) Lumbar radiculopathy Current Visit: Yes Status: Chronic Further discussion with the patient illicits a description of symptoms of pins and needles in his bilateral feet at rest. He reports that these symptoms are intermittent and can be positional. He may have a lumbar radiculopathy. Alternatively, he could have a peripheral neuropathy. - Subjective Interval history: The patient reports that his chest pain has resolved. He states that he is scheduled for a left heart cath today. He denies rest pain today. He denies shortness of breath. Vital Signs, Last 4 Hours Temp Pulse Resp BP Pulse Ox 12/06/16 11:31 97.9 F 79 19 174/89 93 - Physical Examination General: Present: Conversant, No Apparent Distress HEENT: Present: Atraumatic, Pupils equal Neck: Absent: JVD Cardiac: Present: Reg Rate and Rhythm Lungs: Present: Normal Breath Sounds, No Wheeze, Rales, Rhonchi Neuro: Present: Alert and responsive, No focal deficits noted, Motor nerves grossly intact, Sensory nerves grossly intact Vascular: Present: Normal capillary refill, Pulse, absent (right popliteal and pedal pulses absent), Pulse, normal (Left). Absent: Cyanosis, Edema Abdomen: Present: Soft, Non-tender Skin: Present: No rashes noted on visualized skin Results 12/06/16 17:06 12/06/16 17:06 Lab Results, Last 24 hours 12/05/16 12/05/16 12/05/16 15:17 15:17 16:22 WBC 7.0 Hgb 13.0 Hct 37.0 L Plt Count 216 INR APTT Sodium Potassium Chloride Carbon Dioxide BUN Creatinine Glucose Calcium Troponin I 0.00 0.00 12/05/16 12/05/16 12/06/16 16:22 22:11 07:33 WBC 6.4 Hgb 13.2 Hct 37.6 Plt Count 204 INR 1.0 APTT 26.2 41.0 H D Sodium Potassium Chloride Carbon Dioxide BUN Creatinine Glucose Calcium Troponin I 12/06/16 12/06/16 12/06/16 07:33 07:33 13:11 WBC Hgb Hct Plt Count INR APTT 83.0 H D 72.2 H Sodium 138 Potassium 3.8 Chloride 101 Carbon Dioxide 30 H BUN 9 Creatinine 0.84 Glucose 168 H Calcium 9.9 Troponin I - Imaging / Other Tests Non Invasive Vascular Testing: report reviewed (1) Right lower extremity waveform demonstrates moderately diminished hemodynamics. 2) Right Ankle Brachial Index demonstrates moderately occlusive disease. 1) Left lower extremity waveform demonstrates mildly diminished hemodynamics. 2) Left Ankle Brachial Index demonstrates mildly occlusive disease.), image reviewed Consult Discharge Plan - Plan Referrals: NONE,PCP [Primary Care Provider] -
[2016-12-06] MEDS ORDERED: Verapamil 5 MG/2 ML VIAL ONE (14:11)
[2016-12-06] MEDS ORDERED: 0.9 % Sodium Chloride 1,000 ML ONE ×2 (14:12→15:15)
[2016-12-06] MEDS ORDERED: Nitroglycerin 1,000 MCG/10 ML VIAL IV ONE (14:12)
[2016-12-06] MEDS ORDERED: *HR* Heparin 10,000 UNIT/10 ML VIAL ONE (14:12)
[2016-12-06] MEDS ORDERED: Heparin 1,000 UNITS/500 mL NS 500 ML ONE (14:12)
[2016-12-06] MEDS ORDERED: *HR* FentaNYL (PF) 100 MCG/2 ML VIAL ONE (15:18)
[2016-12-06] MEDS ORDERED: *HR* Midazolam HCl 2 MG/2 ML VIAL ONE (15:18)
[2016-12-06] MEDS ORDERED: Nitroglycerin Spray 4.9 GM BOTTLE ONE (15:37)
[2016-12-06] MEDS ORDERED: Tirofiban 12.5 MG/250ML 12.5 MG/250 ML BAG ONE (15:46)
[2016-12-06] MEDS ORDERED: D5% in Water (Mini-Bag+) 100 ML IVPB ONE (15:52)
[2016-12-06] MEDS ORDERED: *HR* Ticagrelor 90 MG TABLET ONE (16:18)
[2016-12-06] MEDS ORDERED: Acetaminophen 325 MG TABLET PO PRN (16:23)
[2016-12-06] MEDS ORDERED: 0.9 % Sodium Chloride 1,000 ML IVC SCH (16:30)
[2016-12-06] MEDS ORDERED: Tirofiban 12.5 MG/250ML 12.5 MG/250 ML BAG IVC SCH (16:30)
--- NOTE | 2016-12-06 16:43 | Invasive Diagnostic Lab Proc ---
Name: Matthew Dejesus Date of Study: 12/06/2016 Date: 1965 Ht: 66.9in Medical Record#: [id number] Age: 51 Wt: 189.60lb Gender: Male BSA: 1.98 Order #: [id number] BMI: 29.76 Physicians Procedure Physician: Geraldo Davis MD Referring MD: Referring MD: Staff Name Position Time In Jessi Sawyer RT (R) Monitor 03:01 PM Mckenna Gunn RT Scrub 03:01 PM Akilah Gipson RN Artistic Associate 03:01 PM Catie Araujo RN Artistic Associate 03:01 PM Indications Indication Unstable Angina Procedures Performed Procedure L HRT ARTERY/VENTRICLE ANGIO Pre-Procedure Checklist Informed consent is complete signed and on chart. H&P is on chart. ID band is on and ID verified with patient. Patient NPO for procedure The procedure was described for the patient and questions were answered. ECG is on chart. Plan of Care Patient will tolerate the procedure without complications. Adequate level of comfort will be maintained. Hemodynamics will remain stable Patient will recover from procedure without complications. Respiratory function will be maintained. Cardiac rhythm will remain stable. Patient temperature will be maintained. Patient and/or family have verbalized understanding of the procedure. Patient Education Chief Complaint/Reason for Test: Cardiac Cath Developmental Category: Adult (18-64 years) Developmentally Appropriate for Age: Yes Learning Barriers: None Education Needs: Procedure Education Method: Verbal Information Taught: Cardiac Cath Educational Evaluation: Able to repeat information Intravenous Access Time IV Size Location DC'd Fluid/Drip Rate Units RN 18g 1 02/22" Patent On Arrival Lt Antecubital 0.9NaCl Allergies No Known Allergies Vital Signs Time BP (mmHg) HR (bpm) O2 Sat. RR (bpm) LOC 160 / 90 71 93 % 20 03:27 PM / % 5 = Fully awake and oriented or at pre-proc level 03:27 PM / % 5 = Fully awake and oriented or at pre-proc level 03:43 PM / % 4 = Oriented but drowsy 03:58 PM / % 5 = Fully awake and oriented or at pre-proc level 03:24 PM 196 / 108 71 99 % 36 03:25 PM 175 / 110 65 99 % 9 03:28 PM 171 / 106 66 95 % 16 03:33 PM 152 / 93 64 94 % 13 03:38 PM 159 / 101 63 96 % 16 03:43 PM 156 / 92 59 96 % 13 03:48 PM 156 / 90 62 96 % 11 03:53 PM 157 / 98 64 96 % 17 03:58 PM 165 / 98 65 96 % 13 04:03 PM 171 / 107 63 97 % 16 04:08 PM 183 / 102 59 98 % 14 04:14 PM 181 / 110 59 98 % 16 04:19 PM 185 / 110 65 100 % 23 04:24 PM 180 / 112 66 98 % 16 04:13 PM / % 5 = Fully awake and oriented or at pre-proc level Procedural Medications Time Medication Dose Units Method Given By 03:27 PM Oxygen 2 L/min nasal cannula Akilah Gipson RN 03:27 PM Versed 1 mg Intravenous Akilah Gipson RN 03:27 PM Fentanyl 50 mcg Intravenous Akilah Gipson RN 03:29 PM Lidocaine 2% 10 ml Subcutaneous MoussKashif salcido MD 03:31 PM Versed 0.5 mg Intravenous Akilah Gipson RN 03:31 PM Fentanyl 25 mcg Intravenous Akilah Gipsno RN 03:34 PM Lidocaine 2% 9 ml Subcutaneous MoussKashif salcido MD 03:37 PM Nitroglycerin 0.4 mg Sublingual Catie Araujo RN 03:41 PM Heparin 500 units Intravenous Akilah Gipson RN 03:46 PM Heparin 4000 units Intravenous Akilah Gipson RN 03:51 PM Aggrastat Bolus: 46 ml Intravenous Akilah Gipson RN 03:51 PM Aggrastat 12.5mg/250ml 16.5 ml/hr Intravenous Akilah Gipson RN 03:54 PM Ancef 1 gram Intravenous Akilah Gipson RN 04:12 PM Nitroglycerin 0.4 mg Sublingual Akilah Gipson RN 04:14 PM Hydralazine 10 mg Intravenous Catie Araujo RN 04:22 PM Nitroglycerin 0.4 mg Sublingual Catie Araujo RN 04:22 PM Brilinta 180 mg Orally Akilah Gipson RN ASA Classification: CLASS II- Mild systemic disease (i.e. well-controlled diabetes, hypertension, asthma, cigarette smoking) Paxton Score Preprocedure Postprocedure Activity 2- Moves 4 extremities sustained head lift Activity 2- Moves 4 extremities sustained head lift Circulation 2- SBP +/= 20 points of pre-anesthetic level Circulation 2- SBP +/= 20 points of pre-anesthetic level Consciousness 2- Awake and alert oriented x 3 Consciousness 2- Awake and alert oriented x 3 O2 Saturation 2- Able to maintain O2 satruation of 92% on room air O2 Saturation 2- Able to maintain O2 satruation of 92% on room air Respiratory 2- Able to deep breathe and cough well Respiratory 2- Able to deep breathe and cough well Total Score 10 Total Score 10 Contrast Agent: Isovue Diagnostic Contrast: 171 ml Total Contrast: 171 ml Fluoro Dose: 1211 mGy Activated Clotting Time Time Seconds to Clot 03:40 PM 137 Procedure Log Time Note Enter By 03:01 PM Jessi Sawyer RT (R) Position: Monitor Time in: : [facility] 03: PM Mckenna Gunn RT Position: Scrub Time in: : [facility] 03:01 PM Akilah Gipson RN Position: Artistic Associate Time in: : [facility] 03:01 PM Catie Araujo RN Position: Artistic Associate Time in: 15: [facility] 03:01 PM Patient charges- Angio tray pack, Navilyst 3mm J, Pulse Oximetry and ACIST tubing and transducer [facility] 03:01 PM IV Supplies used: J loop Angio Cath. [facility] 03:09 PM CathStat 03:23 PM Vitals capture started with the following parameters, Patient=Adult, Interval=5 min, Initial Uxunoxeg=474 mmHg, Deflation Rate=5 mmHg, Cuff placed on Right Arm 03:24 PM HR=71 bpm, MPUB=660/108 mmhg, SpO2=99 %, Resp=36 B/min 03:25 PM [ Start or Stop Vital ] 03:25 PM NIBP STAT measurement started. 03:25 PM Pt arrived to [employer] 1 at 15:25 [facility] 03:25 PM HR=65 bpm, YLYU=030/110 mmhg, SpO2=99.0 %, Resp=9 B/min, Comment=NSR 03:26 PM Patient arrived at 15:26 with Heparin Intravenous drip @ dc'd on arrival to lab ml/hr [facility] 03:26 PM Hair removed from procedure site in holding area using clippers. Bilateral groin prepped with Chloraprep by Catie Araujo RN, safety strap applied then patient was draped. Skin intact. PM Physician arrived 15: PM ASA Class CLASS II- Mild systemic disease (i.e. well-controlled diabetes, hypertension, asthma, cigarette smoking) [facility] PM Meet and tashia completed PM Sign in performed according to hospital policy. [facility] PM Procedure start 15: PM Case Start PM Time: 15: Oxygen on at 2 L/min per nasal cannula by Akilah Gipson RN [facility] PM Time: 15: Versed 1 mg Intravenous Given by [facility]ilah [facility]ipson [facility] PM Time: 15: Fentanyl 50 mcg Intravenous Given by Akilah Gipson [facility] PM Time: 15: Patient comfortable and pain free: Yes PM Time: 15:LOC: 5 = Fully awake and oriented or at pre-proc level PM Clinical Presentation: Unstable angina PM HR=66 bpm, NYJX=675/106 mmhg, SpO2=95.0 %, Resp=16 B/min, Comment=NSR 03: PM Pressure channel 2 zero failed. : PM Pressure channel 2 zeroed. : PM Time out performed according to hospital policy PM Time: 15:29 10 ml Lidocaine 2% to right groin Subcutaneous Given by Geraldo Davis MD [facility]: PM Micro-Introducer Kit utilized for sheath placement PM Time: 15: Versed 0.5 mg Intravenous Given by Akilah Gipson RN [facility] PM Time: 15: Fentanyl 25 mcg Intravenous Given by Akilah Gipson RN [facility] :33 PM image obtained of groin. calcification noted. wire and micropuncture sheath removed. pressure held. : PM HR=64 bpm, XKYN=079/93 mmhg, SpO2=94.0 %, Resp=13 B/min, Comment=NSR 03:34 PM prepping left groin for access :35 PM Time: 15:34 9 ml Lidocaine 2% to left groin Subcutaneous Given by Geraldo Davis MD dspell 03:36 PM Access obtained by percutaneous puncture. 6Fr 10cm Terumo Bradford sheath placed in left Femoral artery. [id number] dspellman 03:37 PM contrast injected, images obtained of the left groin dspell 03:37 PM Time: 15:37 Nitroglycerin 0.4 mcg Sublingual Given by Catie Araujo RN dspsiobhan 03:38 PM 5Fr FR 4 catheter inserted over the wire [facility] dspellman 03:38 PM 0.035 145cm Navilyst 3mmJ wire [id number] dspellman 03:38 PM Recorded Pressure: Ao, HR=63, Condition=Condition 1 (Aorta) Ao 166/95/124 03:38 PM HR=63 bpm, CEMW=042/101 mmhg, SpO2=96.0 %, Resp=16 B/min, Comment=NSR 03:39 PM RCA angiography performed in multiple views. dspell 03:39 PM Catheter removed dspell 03:39 PM 5Fr FL 4 catheter inserted over the wire [facility] dspell 03:40 PM At 15:40 the ACT was 137 seconds. dspell 03:40 PM LCA angiography performed in multiple views. dspell 03:41 PM Recorded Pressure: Ao, HR=61, Condition=Condition 1 (Aorta) Ao 156/88/113 03:41 PM Time: 15:41 Heparin 500 units Intravenous Given by Akilah Gipson RN dspvesta 03:43 PM Time: 15:27LOC: 5 = Fully awake and oriented or at pre-proc level dspell:43 PM Time: 15:27 Patient comfortable and pain free: Yes dspell 03:43 PM Coronary Dominance: Left dspell 03:43 PM HR=59 bpm, OVSU=226/92 mmhg, SpO2=96.0 %, Resp=13 B/min, Comment=NSR 03:46 PM Lesion found in Mid LAD. Pre Stenosis: 70 Pre AGUSTÍN Flow: 3: Complete and Brisk Flow/Perfusion dspell:46 PM Time: 15:46 Heparin 4000 units Intravenous Given by Akilah Gipson RN 03:46 PM Lesion found in Proximal LAD. Pre Stenosis: 25 Pre AGUSTÍN Flow: 3: Complete and Brisk Flow/Perfusion dspellman 03:46 PM Lesion found in Distal Circumflex. Pre Stenosis: 50 Pre AGUSTÍN Flow: 3: Complete and Brisk Flow/Perfusion dspellman 03:47 PM PCI Status Urgent dspellman 03:47 PM PCI Indication: PCI for high risk Non-STEMI or unstable angina dspellman 03:48 PM Recorded Pressure: Ao, HR=64, Condition=Condition 1 (Aorta) Ao 150/88/113 03:48 PM HR=62 bpm, EZFT=774/90 mmhg, SpO2=96.0 %, Resp=11 B/min, Comment=NSR 03:50 PM PCI lesion in Mid LAD. dspellman 03:50 PM 6Fr XB LAD 3.5 Cordis guide catheter was used to cannulate the PCI vessel successfully. reused? No dspellman 03:50 PM .014 [employer] [place] 180cm guide wire across target lesion- successful. reused? No dspellman 03:50 PM Inflation device was opened. dspell 03:51 PM Time: 15:51 Aggrastat Bolus: 46 ml Intravenous Given by Akilah Gipson RN Rowe pump dspell 03:51 PM Time: 15:51 Aggrastat 12.5mg/250ml 16.5 ml/hr Intravenous Given by Akilah Gipson RN Rowe pump dspellman 03:52 PM 2.0 mm x 12 mm Emerge Monorail balloon across target lesion- successful. reused? No dspellman 03:52 PM Balloon inflated @ 6 jocelyne for 7 seconds dspellman 03:53 PM Balloon inflated @ 6 jocelyne for 5 seconds dspellman 03:53 PM HR=64 bpm, KQAQ=850/98 mmhg, SpO2=96.0 %, Resp=17 B/min, Comment=NSR 03:54 PM Time: 15:54 Ancef 1 gram Intravenous Given by Akilah Gipson RN dspsiobhan 03:55 PM Balloon catheter removed intact. dspellman 03:55 PM 2.25mm x 20mm Synergy drug-eluting stent across target lesion- successful Lot #[id number] dspellman 03:56 PM Stent deployed @ 11 jocelyne for 4 seconds dspellman 03:57 PM Stent balloon reinflated @ 16 jocelyne for 9 seconds dspellman 03:57 PM Recorded Pressure: Ao, HR=57, Condition=Condition 1 (Aorta) Ao 135/37/79 03:57 PM Stent delivery system removed intact. dspellman 03:57 PM wire back dspell 03:58 PM Time: 15:43LOC: 4 = Oriented but drowsy dspellman 03:58 PM HR=65 bpm, CNAL=683/98 mmhg, SpO2=96.0 %, Resp=13 B/min, Comment=NSR 03:59 PM Time: 15:43 Patient comfortable and pain free: Yes dspellman 04:00 PM 2.5 mm x 12mm NC Trek Rx balloon across target lesion- successful. reused? No dspellman 04:03 PM Recorded Pressure: Ao, HR=60, Condition=Condition 1 (Aorta) Ao 169/100/130 04:03 PM HR=63 bpm, RJHP=401/107 mmhg, SpO2=97.0 %, Resp=16 B/min, Comment=NSR 04:03 PM Balloon inflated @ 12 jocelyne for 8 seconds dspellman 04:04 PM Balloon inflated @ 6 jocelyne for 4 seconds dspellman 04:05 PM Balloon catheter removed intact. dspellman 04:05 PM Recorded Pressure: Ao, HR=56, Condition=Condition 1 (Aorta) Ao 175/91/123 04:07 PM 2.5 mm x 8mm NC Emerge balloon across target lesion- successful. reused? No dspellman 04:08 PM Balloon inflated @ 16 jocelyne for 10 seconds dspellman 04:08 PM HR=59 bpm, UODD=818/102 mmhg, SpO2=98.0 %, Resp=14 B/min 04:09 PM Balloon inflated @ 16 jocelyne for 10 seconds dspellman 04:09 PM Balloon inflated @ 14 jocelyne for 6 seconds dspellman 04:10 PM Balloon inflated @ 18 jocelyne for 8 seconds dspellman 04:10 PM Guide catheter removed intact. dspellman 04:10 PM Guide wire removed intact. dspell 04:11 PM Procedure completed at 16:11 dspellman 04:12 PM Time: 16:12 Nitroglycerin 0.4 mcg Intracoronary Given by Akilah Gipson RN dspell 04:12 PM Arterial sheath pulled, Angio-seal closure device used and was Successful S/N. dspell 04:13 PM Arterial sheath pulled, Angio-seal closure device used and was Successful S/N [id number]. dspellman 04:13 PM Post ECG NSR dspellman 04:14 PM HR=59 bpm, FBGZ=534/110 mmhg, SpO2=98.0 %, Resp=16 B/min, Comment=NSR 04:14 PM Time: 16:14 Hydralazine 10 mg Intravenous Given by Catie Araujo RN 04:16 PM Time: 15:59 Patient comfortable and pain free: Yes 04:17 PM Sign out completed: Radiation Dose 1211.36 mGy Fluoro Time: 14.5 Isovue 370 - 200ml contrast 171 ml given by Geraldo Davis MD. Complications: NoneCardiac Rehab Consult needed: YesConfirmed administered medications: Yes 04:18 PM Isovue 370 - 200ml,1 Bottle(s) used. dspell 04:19 PM Post ECG NSR 04:19 PM Post Blood Pressure 181/110 dspell 04:19 PM HR=65 bpm, VWUN=409/110 mmhg, HuE6=721.0 %, Resp=23 B/min, Comment=NSR 04:19 PM 16:19 Post Pulses Bilateral DP & PT Doppler dspell 04:20 PM Information taught Cardiac Cath, PCI, and Angioseal dspell 04:20 PM Education needs Procedure dspell 04:20 PM Learning barriers :None ell 04:20 PM Education Methods Verbal ell 04:20 PM Education evaluation Able to repeat information dspell 04:21 PM Family placed in No family available. dspell 04:22 PM Time: 16:22 Nitroglycerin 0.4 mcg Sublingual Given by Catie Araujo RN 04:22 PM Time: 16:22 Brilinta 180 mg Orally Given by Akilah Gipson RN 04:24 PM HR=66 bpm, VRVV=320/112 mmhg, SpO2=98.0 %, Resp=16 B/min, Comment=NSR 04:25 PM Site status No bleeding/hematoma - Lt Groin as reported by Mckenna Gunn RT at 16:25 dspell 04:25 PM Opsite applied dspell 04:25 PM Delay to floor No dspell 04:25 PM Complications: None dspell 04:25 PM Fluoro Time: 14.5 dspell 04:25 PM Isovue 370 - 200ml contrast 171 ml given by Geraldo Davis MD. diana 04:26 PM Radiation Dose 1211.36 mGy diana 04:28 PM Time: 16:13LOC: 5 = Fully awake and oriented or at pre-proc level dspvesta 04:37 PM Report given to 3B RN Pt taken to 3B Room #65. 16:37 diana 04:37 PM Patient out of room: 16:37 diana Complications Complication None None Hemodynamics Pressures Site Systolic/A Wave Diastolic/V Wave Mean AO 166 95 124 AO 156 88 113 AO 150 88 113 AO 135 37 79 AO 169 100 130 AO 175 91 123 Post Procedure Information Blood Pressure: 181/110 mmHg Rhythm: NSR Post procedural instructions were given Closure Device Time Device Success/Fail 12/06/2016 4:37:00 PM Angio-Seal VIP Successful Site Checks Time Location Status Staff Sheath In? Note 04:25 PM Lt Groin No bleeding/hematoma Mckenna Gunn RT Pulses Time Site Pre-Procedure Post-Procedure Note Bilateral DP & PT 2+ Bilateral PT 2+ 4:19:00 PM Bilateral DP & PT Doppler Updated by Jessi Sawyer, RT (R) on 12/06/2016 4:39:18 PM Jessi Sawyer RT electronically signed on 12/06/2016 4:39:43 PM with status of Final
[2016-12-06] MEDS ORDERED: Nitroglycerin 0.2 MG PATCH.TD24 TD PRN (17:17)
[2016-12-06 17:36] LABS: BUN/Creatinine Ratio 10 (6-26); Blood Urea Nitrogen 9 mg/dL (8-26); Calcium 9.6 mg/dL (8.6-10.8); Carbon Dioxide 26 mEq/L (19-29); Chloride 99 mEq/L (98-109); Glucose 119 mg/dL (70-99); Osmolality,Calculated 282 (280-300); Potassium 3.6 mEq/L (3.5-4.5); Sodium 136 mEq/L (136-145); eGFR For African Americans > 60 (> 60); eGFR For Non-African Americans > 60 (> 60)
[2016-12-06 18:01] LABS: Basophils % 0.5 %; Hematocrit 38.5 % (37.5-50.1); Hemoglobin 13.4 g/dL (12.9-16.9); Immature Granulocytes % 0.5 % (0-4); Lymphocytes # 2.2 K/mcL (0.6-4.6); Lymphocytes % 24.9 %; Mean Corpuscular HGB Conc 34.8 g/dL (31.6-35.5); Mean Corpuscular Hemoglobin 29.2 pg (28.0-33.3); Mean Corpuscular Volume 83.9 fL (83.0-100.0); Mean Platelet Volume 10.5 fL (9.4-12.4); Monocytes # 0.6 K/mcL (0.0-1.3); Neutrophils # 5.9 K/mcL (1.6-8.9); Platelet Count 250 K/mcL (140-400); Red Blood Count 4.59 M/mcL (4.19-5.50); Segmented Neutrophils % 67.1 %
[2016-12-06] MEDS ORDERED: Ondansetron 4 MG/2 ML VIAL IVP PRN (20:41)
[2016-12-06] MEDS: *HR* Ticagrelor 90 MG TABLET PO SCH (22:04)
[2016-12-06] MEDS: Insulin DETEMIR 100 UNIT/ML X5UNITS SQ SCH (22:05)
[2016-12-07] MEDS: amLODIPine 5 MG TABLET PO SCH (08:18)
[2016-12-07] MEDS: Insulin LISPRO 300 UNITS/3 ML VIAL SQ SCH ×7 (08:18→21:11)
[2016-12-07] MEDS: Lisinopril 20 MG TABLET PO SCH (08:18)
[2016-12-07] MEDS: Metoprolol 100 MG TABLET PO SCH (08:18)
[2016-12-07] MEDS: Aspirin Enteric Coated 81 MG Tablet PO SCH (08:18)
[2016-12-07] MEDS: *HR* Ticagrelor 90 MG TABLET PO SCH (08:18)
[2016-12-07] MEDS: hydroCHLOROthiazide 25 MG TABLET PO SCH (08:18)
--- NOTE | 2016-12-07 10:27 | Cardiology Progress Note ---
Date of Encounter: 12/07/16 Time of Encounter: 10:30 Assessment and Plan (1) Unstable angina pectoris Current Visit: Yes Status: Acute Presented with symptoms concerning for unstable angina. [facility] completed yesterday and he received FRANCHESKA to the mLAD. Full report pending. ASA, Statin, BB. Brilinta load given and started. Due to new dyspnea, recommend starting plavix. Start plavix 600 mg 12 hours after last brilinta dose. Recommend staying for load due to hih dose. Continue plavix 75 mg daily. Importance of DAPT with asa and plavix for minimum of one year uninterrupted reviewed with patient and family. They voiced understanding. Healthy heart diet and exercise reviewed. Cardiac rehab discussed. Continue statin and bb therapy. No lifting over 10 lbs for one week. No driving for a week. No tub baths for one week. He can take showers. Patient voiced understanding. Out-pt f/u will be scheduled with [facility]. Call with questions. Cardiology will sign off. (2) PAD (peripheral artery disease) Current Visit: Yes Status: Acute Per pt, bilateral PAD diagnosed in [place] with vascular surgery planned. Seen by [facility] specialist this stay and is going to follow in the out- pt setting. ASA and Statin. (3) Essential hypertension Current Visit: Yes Status: Chronic 160/100 at bedside. Norvasc increased yesterday. Continue Lisinopril, HCTZ. Change metoprolol to carvedilol for better blood pressure control. Low sodium diet. Discussion w patient/family: The assessment and plan as outlined above was discussed with the patient and/or family members who expressed understanding and agreement. All questions were answered. Thank you for involving us in the care of your patient. Please call with any questions. Subjective Principal diagnosis: CAD Interval history: Mr. Dejesus described SOB overnight that is now resolved. Denies recurrent chest pain. Denies problems with left groin access site. Objective Vital Signs, Last 4 Hours Temp Pulse Resp BP Pulse Ox 12/07/16 08:05 98.9 F 81 20 160/101 95 General: Conversant, No Apparent Distress HEENT: Atraumatic, Normocephaly, Mucus Membranes Moist Neck: No JVD, Normal carotid pulses Cardiac: Reg Rate and Rhythm, Normal S1 and S2, No Murmur Lungs: Normal Breath Sounds, No Wheeze, Rales, Rhonchi Neuro: Alert and responsive, No focal deficits noted Abdomen: Soft, Non-Tender Skin: No rashes noted on visualized skin Musculoskeletal: No Chest Wall Tenderness Extremities: No Clubbing, No Cyanosis, No Edema, Normal Pulses, Other (Left groin soft without hematoma. Dressing removed and VIANEY. ) Results 12/06/16 17:06 12/06/16 17:06 Lab Results 12/06/16 12/06/16 12/06/16 13:11 17:06 17:06 WBC 8.8 Hgb 13.4 Hct 38.5 Plt Count 250 APTT 72.2 H Sodium 136 Potassium 3.6 Chloride 99 Carbon Dioxide 26 BUN 9 Creatinine 0.89 Glucose 119 H Calcium 9.6 - Imaging and Cardiology Echo: report reviewed Cardiac cath: pending, other - EKG Interpretation EKG results cardiology: personally reviewed Consult Discharge Plan - Plan Referrals: NONE,PCP [Primary Care Provider] -
--- NOTE | 2016-12-07 11:00 | Internal Med Progress Note ---
Date of Encounter: 12/07/16 Time of Encounter: 10:00 - Assessment and plan (1) Unstable angina pectoris Current Visit: Yes Status: Acute Assessment and plan: s/p [facility] PCI to LAD Did not tolerate Brilinta so will load him with Plavix tonight as per Card Cont ASA and Statin Cont BB (2) Superficial femoral artery occlusion Current Visit: Yes Status: Acute Assessment and plan: Reviewed arterial doppler studies - showed diffuse atherosclerosis disease b/l, more significant on Rt side. Occluded Rt superfical fem artery nticed But pt does not have any ischemic signs Vascular surgery on board.. recommend to f/u with them as an out pt Need further work up with Angiogram Started on Cilostazol (3) PAD (peripheral artery disease) Current Visit: Yes Status: Acute Assessment and plan: see above (4) Essential hypertension Current Visit: Yes Status: Chronic Assessment and plan: resumed all home meds on Hydralazine IV PRN (5) Atherosclerosis of [place] arteries of extremities with intermittent claudication, bilateral legs Current Visit: Yes Status: Chronic Assessment and plan: on ASA + Statin (6) Type 2 diabetes mellitus Current Visit: Yes Status: Chronic Assessment and plan: HbA1C 6.7 Cont Levemir + ISS Qualifiers: Diabetes mellitus complication status: with circulatory complication Diabetes mellitus complication detail: with peripheral angiopathy without gangrene Diabetes mellitus terminal manager insulin use: without [facility] use Qualified Code(s): E11.51 - Type 2 diabetes mellitus with diabetic peripheral angiopathy without gangrene (7) DVT prophylaxis Current Visit: Yes Status: Acute Assessment and plan: on Heparin gtt - Subjective Interval history: Mr. Dejesus is a 51 year old male with past medical history significant for hypertension and peripheral vascular disease who presented to the hospital for chest pain. He also reported severe right leg pain and he had recently had vascular studies done at a hospital in [place] which found a blockage of one of the arteries in the right leg. The day he came into ER at 2 AM he woke up with moderate, 6/10 in intensity pressure-like left-sided chest pain not associated with shortness of breath and diaphoresis. He was brought to the hospital and was given sublingual nitroglycerin and DuoNeb which relieved the pain. He had cardiac cath y/d had PCI to LAD. He was placed on Brilinta last night, pt developed SOB with it. He denied any CP. Still gets some leg claudicating pain with walking. No pain in legs at rest - Constitutional Vitals: Temp Pulse Resp BP Pulse Ox 98.9 F 81 20 160/101 95 12/07/16 08:05 12/07/16 08:05 12/07/16 08:05 12/07/16 08:05 12/07/16 08:05 General appearance: Present: A&O X 3, no acute distress - Head Head exam: Present: atraumatic, normal inspection - Respiratory Respiratory exam: Present: decreased breath sounds. Absent: rales, respiratory distress, rhonchi, wheezes - Cardiovascular Cardiovascular exam: Present: RRR, +S1, +S2. Absent: diastolic murmur, gallop, rubs, systolic murmur - GI/Abdominal GI/Abdominal exam: Present: normal bowel sounds, soft, no peritoneal signs. Absent: distended, tenderness - Extremities Exam Extremities exam: Absent: calf tenderness, pedal edema, tenderness Additional comments: diminished pulses in b/l le distally - Back Exam Back exam: Absent: CVA tenderness (L), CVA tenderness (R) - Psychiatric Psychiatric exam: Present: normal affect, normal mood Internal Medicine: Result - Labs CBC & Chem 7: 12/06/16 17:06 12/06/16 17:06 Labs: Short CBC 12/06/16 Range/Units 17:06 WBC 8.8 (4.3-11.1) K/mcL Hgb 13.4 (12.9-16.9) g/dL Hct 38.5 (37.5-50.1) % Plt Count 250 (140-400) K/mcL Neutrophils # 5.9 (1.6-8.9) K/mcL BMP 12/06/16 17:06 Sodium 136 Potassium 3.6 Chloride 99 Carbon Dioxide 26 BUN 9 Creatinine 0.89 Glucose 119 H Calcium 9.6 - ABG Interpretation ABG results: PT/INR, D-dimer PT 11.2 Seconds (9.4-12.1) 12/05/16 16:22 Consult Discharge Plan - Plan Referrals: NONE,PCP [Primary Care Provider] -
[2016-12-07] MEDS ORDERED: hydrALAZINE 10 MG TABLET PO SCH (12:00)
--- NOTE | 2016-12-07 15:31 | Electrocardiograph Report ---
[place] [id number] Test Date: 2016-12-06 Pat Name: Matthew Dejesus Department: 113 Room: [facility] [place] Gender: M Senior Air Director: [id number] : 1965 Requested By: Geraldo Davis Order Number: [id number] Reading MD: Connor Matt Measurements Intervals [place] Rate: 67 P: 31 NV: 173 QRS: -4 QRSD: 98 T: -14 QT: 401 QTc: 416 Interpretive Statements SINUS RHYTHM Electronically Signed On 12-07-2016 15:30:17 EDT by Connor Matt
[2016-12-07] MEDS: Insulin DETEMIR 100 UNIT/ML X5UNITS SQ SCH (21:16)
[2016-12-08] MEDS: Lisinopril 20 MG TABLET PO SCH (07:53)
[2016-12-08] MEDS: Aspirin Enteric Coated 81 MG Tablet PO SCH (07:53)
[2016-12-08] MEDS: hydroCHLOROthiazide 25 MG TABLET PO SCH (07:53)
[2016-12-08] MEDS: amLODIPine 5 MG TABLET PO SCH (07:54)
[2016-12-08] MEDS: Insulin LISPRO 300 UNITS/3 ML VIAL SQ SCH ×2 (07:54→07:55)
--- NOTE | 2016-12-08 08:13 | Discharge Summary ---
Date of Encounter: 12/08/16 Time of Encounter: 08:11 - Discharge Diagnosis (1) Unstable angina pectoris Priority: Primary Status: Acute (2) CAD (coronary artery disease), [place] coronary artery Priority: Secondary Status: Acute Qualifiers: [place] vs. transplanted heart: [place] heart Associated angina: with unstable angina Qualified Code(s): I25.110 - Atherosclerotic heart disease of [place] coronary artery with unstable angina pectoris (3) Superficial femoral artery occlusion Priority: Primary Status: Acute (4) PAD (peripheral artery disease) Priority: Primary Status: Acute (5) Essential hypertension Priority: Secondary Status: Chronic (6) Atherosclerosis of [place] arteries of extremities with intermittent claudication, bilateral legs Priority: Secondary Status: Chronic (7) Type 2 diabetes mellitus Priority: Secondary Status: Chronic Qualifiers: Diabetes mellitus complication status: with circulatory complication Diabetes mellitus complication detail: with peripheral angiopathy without gangrene Diabetes mellitus long term care pharmacist insulin use: without long term care pharmacist use Qualified Code(s): E11.51 - Type 2 diabetes mellitus with diabetic peripheral angiopathy without gangrene (8) DVT prophylaxis Priority: Secondary Status: Acute - Discharge Medications Prescriptions: Nitroglycerin 0.4 mg SL Q5MIN PRN #15 tab.subl PRN Reason: Chest Pain Aspirin Enteric Coated [Aspirin EC] 81 mg PO DAILY #30 tablet. Atorvastatin [Lipitor] 40 mg PO HS #30 tablet Clopidogrel [Plavix] 75 mg PO DAILY #30 tablet Home Medications: Glimepiride [Amaryl] 4 mg PO BID 12/05/16 [History] Insulin Human Regular [HumuLIN R] 10 unit SQ DAILY PRN 12/05/16 [History] Lisinopril [Zestril] 40 mg PO DAILY 12/05/16 [History] Metoprolol [Lopressor] 100 mg PO BID 12/05/16 [History] Omeprazole Magnesium [Prilosec Otc] 20 mg PO DAILY 12/05/16 [History] Pioglitazone [Actos] 45 mg PO DAILY 12/05/16 [History] hydroCHLOROthiazide [Hydrochlorothiazide] 25 mg PO DAILY 12/05/16 [History] Aspirin Enteric Coated [Aspirin EC] 81 mg PO DAILY #30 tablet. 12/08/16 [Rx] Atorvastatin [Lipitor] 40 mg PO HS #30 tablet 12/08/16 [Rx] Cilostazol [Pletal] 100 mg PO BID #60 tablet 12/08/16 [Rx] Clopidogrel [Plavix] 75 mg PO DAILY #30 tablet 12/08/16 [Rx] Nitroglycerin 0.4 mg SL Q5MIN PRN #15 tab.subl 12/08/16 [Rx] cloNIDine HCl [CloNIDine HCl] 0.1 mg PO BID #60 12/08/16 [Rx] Allergies/Adverse Reactions: 3 Allergy/AdvReac Type Severity Reaction Status Date / Time No Known Allergies Allergy Verified 12/05/16 06:04 Procedures/tests Complete & Pending: Procedures Performed prior 72 hours Category Date Time Status CL Cardiac Catheterization [CL] Routine Welding Inspector 12/05/16 13:32 Ordered ECG 12 lead ECG [ECG] Routine Y 12/06/16 16:20 Completed EV echocardiogram Routine Y 12/05/16 13:32 Completed Date of admission: 12/05/16 10:52 Primary care physician: PCP NONE Consults: 12/05/16 10:57 Consult to Physician [CONS] Routine Consulting Provider: Zoltan Aldridge Reason for Consult: Unstable angina, severe peripheral arterial disease. Time Notified: 10:58 Call Completed: Yes 12/05/16 10:58 Consult to Demographic Analyst [CONS] Routine Reason for SW Consult: hcap 12/05/16 10:59 Consult to Vascular Surgery [CONS] Routine Consulting Provider: Vascular Surgery Trudy Reason for Consult: Subacute right superficial femoral artery occlusion Time Notified: 11:15 Call Completed: Yes 12/06/16 16:24 Consult to Cardiac Rehabilitation-Phase1 [CONS] Routine Comment: Reason for Consult: post op cath Call Completed: Yes - Patient Status Disposition: Home, Self-Care Condition: Good Overall status at discharge: patient is back to baseline - Discharge Instructions Follow Up With: Cardiology [facility] [Provider Group] (The office will call you with a follow up appt.) Narinder Bertrand MD [Partnered Physician] - 01/01/17 2:40 pm NONE,PCP [Primary Care Provider] - Additional Instructions: RISK FACTORS: STOP SMOKING: If you smoke, STOP. Smoking or tobacco use significantly increases your risk of heart disease because nicotine causes the arteries to narrow or constrict. It also causes fats to stick to the artery. Your chances of having a heart attack are greatly increased if you continue to smoke. For more information, call the education line for smoking cessation 6-319-QPOTPLL EAT A LOW FAT/CHOLESTEROL/SODIUM DIET: This diet may help reduce your chances of having a heart attack. LIFTING: Avoid lifting anything more than 10 pounds for 5-7 days Prior to straining, laughing, sneezing and/or coughing, apply manual pressure directly over insertion site. ACTIVITY: You may walk or climb stairs as tolerated You can resume sexual activity as tolerated In general, you are encouraged to engage in a minimum of 30 minutes or more of moderate intensity physical activity, such as brisk walking, daily or at least 3 -4 times weekly BATHING Do not submerge the site into water (bath tub, hot tub, swimming pool) for 1 week. This can be a source for infection into the blood stream. You may shower after 24 hours SITE CARE: After 24 hours, you may remove the dressing and leave the site open to air. Keep the site clean and dry. Clean gently and pat dry. You can expect bruising and tenderness that gradually resolve within a week or two. Return to work as instructed per your physician Resume driving as instructed per physician Keep all scheduled follow up appointments Resume medications as instructed IMPORTANT: If prescribed a Platelet Aggregation Inhibitor such as, Plavix, Brilinta or Effient: Duration of therapy is minimum one year These medications are often used in combination with Aspirin in prevention of future heart attacks Never discontinue unless consult with your Towboat Captain STROKE (CVA) Risk factors for a stroke are: Age, cigarette smoking, diabetes, excessive alcohol consumption, family history, high blood pressure, overweight, physical inactivity, prior stroke, heart attack, diagnosis of carotid artery stenosis or other artery disease. Warning signs: Sudden numbness or weakness of the face, arm or leg; especially on one side of the body, sudden confusion, trouble speaking or understanding, sudden trouble seeing in one or both eyes, sudden trouble walking, dizziness, loss of balance or coordination, sudden severe headache with no cause. Call 911 or go to the Emergency Room. CONGESTIVE HEART FAILURE: If you have been diagnosed with Congestive Heart Failure (CHF) and your symptoms return, make an appointment with your physician Weigh yourself daily. Notify your physician if you have a weight gain of two or more pounds in one day or five or more pounds in one week. If you experience any difficulty breathing, please call 911 BLEEDING: Although the risk of bleeding is minimal, it can happen. If you have any bleeding from the site, apply firm pressure above the puncture site for 10-15 minutes. If the bleeding does not stop, continue manual pressure and call 911 Contact your physician if: You develop a fever greater than 101 degrees Fahrenheit Your site becomes reddened or has any drainage You have an increase in pain or burning at the site or if a large knot forms at the site. If you experience chest pain, shortness of breath, dizziness, or extreme tiredness, stop the activity and rest. Please notify your physicians office if you experience any of these symptoms and they are not relieved by rest please call 911! No lifting over 10 lbs for one week. No driving for a week. No tub baths for one week. He can take showers. Patient voiced - Diet and Activity Activity: increase activity as tolerated Diet: low salt diet Hospital course: Mr. Dejesus is a 51 year old male with past medical history significant for hypertension and peripheral vascular disease who presented to the hospital for chest pain. He also reported severe right leg pain and he had recently had vascular studies done at a hospital in [place] which found a blockage of one of the arteries in the right leg. The day he came into ER at 2 AM he woke up with moderate, 6/10 in intensity pressure-like left-sided chest pain not associated with shortness of breath and diaphoresis. He was brought to the hospital and was given sublingual nitroglycerin and DuoNeb which relieved the pain. Pt was admitted in the hospital and started him on Heparin gtt. He was placed on advertising solicitor checked serial troponin. all his troponins were negative. however due to his severe PAD, he did go for [facility] and had PCI to LAD on 12/06/16. He could not tolerate Brilinta so switched him to Plavix and continued ASA. His BP also not well controlled, he was taking Clonidine on PRN basis at home, so recommend to continue Clonidine 0.1mg PO BID. Regarding his PAD and supreficial femoral artery occlusion , reviewed arterial doppler studies - showed diffuse atherosclerosis disease b/l, more significant on Rt side. Occluded Rt superficial fem artery noticed. But pt does not have any ischemic signs. Vascular surgery evaluated the pt and recommend to f/u with them as an out pt for further work up with Angiogram. He was started on Cilostazol here. - Time Spent with Patient Total time spent providing and/or coordinating discharge services: - Constitutional Vitals: Temp Pulse Resp BP Pulse Ox 98.2 F 74 16 164/104 98 12/08/16 07:35 12/08/16 07:35 12/08/16 07:35 12/08/16 07:35 12/08/16 07:35 General appearance: Present: A&O X 3, no acute distress - Head Head exam: Present: atraumatic, normal inspection - Neck Neck exam general surgery: Present: supple - Respiratory Respiratory exam: Present: CTAB. Absent: accessory muscle use, rales, rhonchi, wheezes - Cardiovascular Cardiovascular exam: Present: RRR, +S1, +S2. Absent: systolic murmur - GI/Abdominal GI/Abdominal exam: Present: normal bowel sounds, soft. Absent: rebound, rigid, tenderness - Extremities Exam Extremities exam: Absent: calf tenderness, pedal edema, tenderness Additional comments: Pulses are palpable and diminished b/l distally - Back Exam Back exam: Absent: CVA tenderness (L), CVA tenderness (R) - Neurological Exam Neurological exam: Present: alert, oriented X3 - Psychiatric Psychiatric exam: Present: normal affect, normal mood
[2016-12-08 08:41] VITALS: BP 133/88
== END 2016-12-08 09:26 | disposition home or self-care (01) | DRG 247 ==
LOC: EMEROO 05:59 → 3BNU 05:59 → SUATTDRO 10:52 → 3BNU 14:35
PROVIDERS: ADMIT Internal Medicine; ATTEND Family Medicine

== ENCOUNTER 2017-03-22 05:55 | Inpatient (IN) ==
[2017-03-22] MEDS ORDERED: CeFAZolin Syr 2,000MG/20 ML 2,000 MG/20 ML SYRINGE IVPB ONE (06:18)
[2017-03-22] MEDS ORDERED: Vancomycin 1,250 MG in D5% in Water 250 ML IVPB ONE ×2 (06:18→19:15)
[2017-03-22] MEDS ORDERED: Plasma-Lyte A (PH 7.4) 1,000 ML IVC SCH ×2 (06:30→13:55)
--- NOTE | 2017-03-22 06:56 | Anesthesia Evaluation PreOp ---
Date of Encounter: 03/22/17 Time of Encounter: 06:54 - Past History Planned Operation: right fem-pop BPG Cardiac History: HTN, Hyperlipidemia, Cardiac Stent (11/2016 [facility]), Other ( PAD, CAD) Pulmonary History: Denies Any Significant HX Other Medical History: Diabetes Type II, GERD Anesthesia History: No Prior Anesthetic Complications, Past Anesthesia Alcohol Use: none Drug use: marijuana Medications and Allergies Glimepiride [Amaryl] 4 mg PO BID 12/05/16 [History] Insulin Human Regular [HumuLIN R] 10 unit SQ DAILY PRN 12/05/16 [History] Lisinopril [Zestril] 40 mg PO DAILY 12/05/16 [History] Metoprolol [Lopressor] 100 mg PO BID 12/05/16 [History] Omeprazole Magnesium [Prilosec Otc] 20 mg PO DAILY 12/05/16 [History] Pioglitazone [Actos] 45 mg PO DAILY 12/05/16 [History] hydroCHLOROthiazide [Hydrochlorothiazide] 25 mg PO DAILY 12/05/16 [History] Aspirin Enteric Coated [Aspirin EC] 81 mg PO DAILY #30 tablet.dr 12/08/16 [Rx] Atorvastatin [Lipitor] 40 mg PO HS #30 tablet 12/08/16 [Rx] Clopidogrel [Plavix] 75 mg PO DAILY #30 tablet 12/08/16 [Rx] Nitroglycerin 0.4 mg SL Q5MIN PRN #15 tab.subl 12/08/16 [Rx] cloNIDine HCl [CloNIDine HCl] 0.1 mg PO BID #60 12/08/16 [Rx] OxyCODONE/APAP 5/325 [Percocet 5/325 MG] 1 each PO Q6HR PRN #10 tablet 01/24/17 [Rx] Acetaminophen [Tylenol] 1,000 mg PO Q6HR PRN #90 tablet 02/28/17 [Rx] 3 Allergy/AdvReac Type Severity Reaction Status Date / Time No Known Allergies Allergy Verified 12/05/16 06:04 - Meds/Allergy Pre-op Review Medications Reviewed: Yes Allergies Reviewed: Yes Beta Blockers on Current Med List: Yes If Beta Blockers taken, Date/Time (Last Dose taken): today 0400 Anesthesia Results - Labs Laboratory Tests 02/27/17 02/27/17 08:51 09:07 Hgb 14.2 Hct 42.3 Plt Count 233 Sodium 136 Potassium 4.2 BUN 18 Creatinine 0.98 Anesthesia Exam Selected Entries 03/22/17 06:27 Temperature 97.8 F Pulse Rate 71 Respiratory Rate 18 Blood Pressure 171/110 O2 Sat by Pulse Oximetry 98 Weight: 90kg NPO (# of Hours): 8 - HEENT Pupil (Motor): EOMI Mallampati: III Teeth: Normal, Prosthesis (permanent upper) Oral Opening: Greater than 3 - FRACTIONATION SUPERVISOR LOC: Oriented FRACTIONATION SUPERVISOR Motor: Normal RUE, Normal LUE, Normal RLE, Normal LLE, Normal Face FRACTIONATION SUPERVISOR Sensory: Normal: RUE, LUE, RLE, LLE, Face - Cardiac Rhythm: Regular Murmur: None - Pulmonary Breath Sounds: bilateral Clear Respiratory Effort: Symmetrical Anesthesia Assess/Plan ASA Score: 3 Modified Blanco Scale for Level of Consciousness: Cooperative, oriented, and tranquil Anesthetic Plan: General Monitoring Plan: Standard Monitors, A-Line Recovery Plan: PACU (agrees to GA and a-line)
[2017-03-22] MEDS ORDERED: Heparin 1,000 UNITS/500 mL 1,000 ML ONE (07:12)
[2017-03-22] MEDS ORDERED: *HR* Propofol 200 MG/20 ML VIAL IVP ONE (07:22)
[2017-03-22] MEDS ORDERED: *HR* FentaNYL (PF) 100 MCG/2 ML VIAL ONE ×2 (07:22→11:51)
[2017-03-22] MEDS ORDERED: *HR* Succinylcholine 200 MG/10 ML VIAL IVP ONE (07:22)
[2017-03-22] MEDS ORDERED: Ondansetron 4 MG/2 ML VIAL ONE (07:22)
[2017-03-22] MEDS ORDERED: Lidocaine -MPF 4% 5 ML AMPUL ONE (07:22)
[2017-03-22] MEDS ORDERED: Dexamethasone 4 MG/ML VIAL ONE (07:22)
[2017-03-22] MEDS ORDERED: *HR* Midazolam HCl 2 MG/2 ML VIAL ONE (07:22)
[2017-03-22] MEDS ORDERED: Lidocaine -MPF 2% 2 ML VIAL ONE ×2 (07:22→07:24)
[2017-03-22] MEDS ORDERED: *HR* Phenylephrine 10 MG/ML VIAL ONE (07:22)
[2017-03-22] MEDS ORDERED: Heparin 1,000 UNITS/500 mL 500 ML ONE (07:26)
[2017-03-22] MEDS ORDERED: *HR* Remifentanil 2 MG VIAL IVP ONE (07:29)
--- NOTE | 2017-03-22 07:31 | History & Physical Report ---
Date of Encounter: 03/22/17 Time of Encounter: 07:28 24 Hour HP Update - Instructions Instructions: If the History and Physical is less than 30 days old and was completed prior to A.M. admission and or procedure and has NOT been updated on calendar day of procedure please complete this update prior to performing procedure. - Update Patient reports changes in Medical Condition: No Changes in examination, assessment, or condition: No Changes in Medication: No Preop tests/diagnostics Reviewed: Yes Surgery Remains Indicated: Yes Consent for Planned Operative Procedure(s) Verified: Yes - Pre-Operative Checklist Preoperative Checklist Indicated: Yes Prophylactic Antibiotic Ordered: Yes (vancomycin due to MRSA risk) Home Medications Include Beta Adolfo: Yes Beta Adolfo Taken Today (Day of Surgery): Yes Beta Adolfo Taken Yesterday (Day Prior to Surgery): Yes Is VTE Prophylaxis Indicated?: Yes
[2017-03-22] MEDS ORDERED: Vancomycin 1,000 MG, Sodium Chloride IRRigation 1,000 ML IR ONE (07:45)
[2017-03-22] MEDS ORDERED: *HR* Heparin 5,000 UNIT/ML VIAL ONE (09:01)
[2017-03-22] MEDS ORDERED: Vancomycin 1,000 MG in D5% in Water 250 ML IVPB ONE ×2 (09:08→09:22)
[2017-03-22] MEDS ORDERED: Ketorolac 30 MG/ML VIAL IVP ONE (09:59)
[2017-03-22] MEDS ORDERED: Albuterol 2.5 MG/3 ML NEBULIZER IH ONE (09:59)
[2017-03-22] MEDS ORDERED: *HR* HYDROmorphone 2 MG TABLET PO PRN (09:59)
[2017-03-22] MEDS ORDERED: *HR* OxyCODONE/APAP 5/325 TABLET PO PRN (09:59)
[2017-03-22] MEDS ORDERED: *HR* Promethazine 25 MG/ML VIAL IVP PRN ×2 (09:59→13:55)
[2017-03-22] MEDS ORDERED: Acetaminophen 325 MG TABLET PO PRN ×2 (10:26→13:55)
[2017-03-22] MEDS ORDERED: Naloxone 0.4 MG/ML INJ IVP PRN ×2 (10:26→13:55)
[2017-03-22] MEDS ORDERED: *HR* OxyCODONE Immed Rel 5 MG TABLET PO PRN (10:26)
[2017-03-22] MEDS ORDERED: Ondansetron 4 MG/2 ML VIAL IVP PRN ×2 (10:26→13:55)
[2017-03-22] MEDS ORDERED: *HR* HYDROcodone/Acet 5/325 mg TABLET PO PRN ×2 (10:26→13:55)
--- NOTE | 2017-03-22 10:26 | Operative Note ---
Date of procedure: 03/22/17 Pre-op diagnosis: Peripheral vascular disease with disabling claudication Post-op diagnosis: same Procedure: Right femoral to above knee popliteal artery bypass with 6mm Distaflo mini-cuff graft. Complications: None Anesthesia: GETA Surgeon: Narinder Bertrand Was there an educational program assistant present: Yes Lock Fitter: Galdino Devine Estimated blood loss (cc): 100 Specimen: None Condition: stable Disposition: PACU Procedure in Detail: Indications: The patien tis a 51 year old male with hypertension, hyperlipidemia, coronary artery disease and diabetes. He presented with disabling claudication that persisted despite medical therapy and a walking regimen. He was found to have a right superficial femoral artery occlusion. Bypass was recommended for symptomatic relief. Procedure: The patient was identified in the preoperative area. The risks, benefits, and alternatives of the procedure were discussed. All questions were answered. The patient was taken to the operating room and placed in supine position on the operating room table. After the induction of general endotracheal anesthesia, he was cleaned and draped in normal sterile fashion. An oblique incision was made over the right groin sharply. Hemostasis was obtained with electrocautery. Through a process of blunt, sharp, and electrocautery dissection, the right femoral vessels were dissected circumferentially and surrounded with vessel loops. An incision was made on the right medial distal thigh sharply. Hemostasis was obtained with electrocautery. Through a process of blunt, sharp, and electrocautery dissection, the right above-knee popliteal artery was dissected proximally and distally and surrounded with vessel loops. A graft was tunneled between the popliteal and femoral incisions. The patient received 5000 units of heparin intravenously. Additional heparin was givne throughout the case to maintain adequate anticoagulation. The popliteal vessels were occluded and a longitudinal arteriotomy was made in the popliteal artery. The distal end of the graft was sutured in place with a running 6-0 Prolene, but not tied. Heparinized saline was infused into the lumen. Tension was applied to the femoral vessel loops. An arteriotomy was made in the common femoral artery and the graft was cut to fit the defect. The graft was anastamosed with a running 6-0 Prolene. The vessels were flushed through the graft and heparin was infused into the lumen. The graft was clamped with an atraumatic clamp. Thrombin and gelfoam were used at the proximal anastamosis. Priot to completing the distal arterial anastamosis, the popliteal vessels were flushed and reoccluded. Heparinized saline was infused into the lumen. The anastamosis was then completed and then flow was restored. Polyphasic signals were noted distal to the distal anastomosis as well as at the posterior tibial artery. Wounds were irrigated with antibiotic-containing saline. Thrombin and gelfoam were used to aid in hemostasis. Platelet rich and platelet poor plasma were infused into the wounds. Meticulous hemostasis was obtained throughout the wound with electrocautery. Wounds were reapproximated with layers of 2-0 and 3-0 Vicryl. Skin was reapproximated with 3-0 Monocryl. Sterile dressing was applied. The patient was extubated and taken to recovery room in stable condition.
[2017-03-22] MEDS ORDERED: Ketorolac 15 MG/ML VIAL IVP PRN ×2 (10:31→13:55)
[2017-03-22] MEDS: MORPHINE SUL Oral CONC 10 MG/0.5 ML ORAL.SYG SL PRN ×2 (11:45→11:50)
[2017-03-22] MEDS: *HR* FentaNYL (PF) 100 MCG/2 ML VIAL IVP PRN ×4 (11:54→12:13)
[2017-03-22] MEDS ORDERED: Ringers Solution, Lactated 1,000 ML ONE (11:55)
[2017-03-22] MEDS ORDERED: *HR* Metoprolol 5 MG/5 ML VIAL IVP SCH (12:00)
--- NOTE | 2017-03-22 12:01 | Operative Note ---
Date of procedure: 03/22/17 Pre-op diagnosis: PAD/Lifestyle limiting claudication Post-op diagnosis: same Procedure: Right common femoral to [id number] popliteal artery bypass graft with 6 mm Distaflo PTFE Complications: None Anesthesia: GETA Surgeon: Narinder Bertrand Co-Surgeon: Galdino Devine Was there an assistant news director present: No Estimated blood loss (cc): 100 Specimen: None Condition: stable Disposition: PACU Procedure in Detail: History Mr. Dejesus is a 51-year-old white male with significant right lower extremity claudication. Angiography revealed occlusion of the right superficial femoral artery. The patient to the operating room for revascularization. Procedure After informed consent was obtained the patient was taken to the operating room. An arterial line was placed. General endotracheal anesthesia was established. The right lower extremity was sterilely prepped and draped. A 2 team surgical approach was utilized for this procedure due to the patient's comorbid conditions. This was also done to assist with complex intraoperative decision-making and to decrease blood loss and time of general anesthesia. The common femoral artery and the [id number] popliteal artery were dissected simultaneously. Controls obtained of these vessels using Vesseloops. An anatomic tunnel was then created. A 6 mm PTFE Distaflo graft was selected. This was passed through the tunnel. The patient was then given 5000 units of heparin intravenously. After 3 minute delay the vessels were clamped. An arteriotomy was performed on the [id number] popliteal artery. This anastomosis was initiated and then once the appropriate length was identified then the proximal anastomosis was initiated at the common femoral artery. Both anastomoses were sewn in an end-to-side fashion using 6-0 Prolene suture. After appropriate backbleeding and flushing the graft was opened. Pulsatile flow was then restored into the right popliteal artery. Doppler signals were identified over the posterior tibial and dorsalis pedis arteries. The wounds were then irrigated. Hemostasis was achieved. The wounds were closed in layers using absorbable suture. There were no intraoperative complications. The patient tolerated the procedure well. The patient was extubated in the operating room and taken to the recovery room in stable condition.
[2017-03-22] MEDS: *HR* Labetalol 20 MG/4 ML SYRINGE IVP PRN ×2 (12:03→12:19)
[2017-03-22] MEDS ORDERED: Acetaminophen IV 1,000 MG/100 ML INFUS..BTL ONE (12:05)
[2017-03-22] MEDS ORDERED: *HR* Labetalol 20 MG/4 ML SYRINGE IVP ONE ×2 (12:06→12:40)
[2017-03-22] MEDS ORDERED: Acetaminophen IV 1,000 MG/100 ML INFUS..BTL IVPB ONE (12:09)
[2017-03-22] MEDS ORDERED: Ketorolac 30 MG/ML VIAL IM ONE (12:11)
--- NOTE | 2017-03-22 13:23 | Anesthesia Evaluation Post Op ---
Date of Encounter: 03/22/17 Time of Encounter: 13:21 - Vital Signs Vital Signs: Selected Entries 03/22/17 12:57 Temperature 98.2 F Pulse Rate 101 Respiratory Rate 20 Blood Pressure 163/95 O2 Sat by Pulse Oximetry 96 Oxygen Flow Rate (LPM) 2 - Lungs Lungs: Clear Ascult./Percussion - Airway Airway: Non-obstructed - Cardiovascular Regular Rate - Mental Status Mental Status: Alert & Oriented, Answers Appropriately - Pain Pain Scale: 4 Pain Scale used: Numeric (1 - 10) - Nausea Vomiting Nausea Vomiting: Not Present - Hydration Hydration: Ice chips, Miller catheter Notes: 03/22/17 13:21 Patient has received hydralzine and labetalol with minimal effect. His pressure is poorly controlled as outpatient. Pain is better controlled but has required alot of medication. Urine is slightly blood tinged, Dr Bertrand made aware. Will send to floor - Discharge PostOp Status: Transfer Patient to floor
[2017-03-22] MEDS ORDERED: Dextrose Gel 15 GM/37.5 ML TUBE PO PRN ×2 (13:55)
[2017-03-22] MEDS ORDERED: *HR* Labetalol 20 MG/4 ML SYRINGE IVP PRN (13:55)
[2017-03-22] MEDS ORDERED: Nitroglycerin 0.4 MG TAB.SUBL SL PRN (13:55)
[2017-03-22] MEDS ORDERED: D5% in Water 1,000 ML IVC PRN (13:55)
[2017-03-22] MEDS ORDERED: *HR* Dextrose 50 % in Water (Syg) 50 ML SYRINGE IVP PRN (13:55)
[2017-03-22] MEDS ORDERED: CeFAZolin Premix DUPLEX 2,000 MG/50 ML BAG IVPB SCH (14:30)
[2017-03-22] MEDS: *HR* OxyCODONE Immed Rel 5 MG TABLET PO PRN (16:03)
[2017-03-22] MEDS: CeFAZolin Premix DUPLEX 2,000 MG/50 ML BAG IVPB SCH (16:03)
[2017-03-22] MEDS: Insulin LISPRO 300 UNITS/3 ML VIAL SQ SCH (17:16)
[2017-03-22] MEDS: *HR* Metoprolol 5 MG/5 ML VIAL IVP SCH (17:16)
[2017-03-22] MEDS ORDERED: Vancomycin 1,500 MG in D5% in Water 250 ML IVPB ONE (19:15)
[2017-03-22] MEDS: cloNIDine HCl 0.1 MG TABLET PO SCH (20:54)
[2017-03-22] MEDS ORDERED: Insulin LISPRO 300 UNITS/3 ML VIAL SQ SCH (21:00)
[2017-03-23] MEDS: *HR* Metoprolol 5 MG/5 ML VIAL IVP SCH ×2 (00:18→05:24)
[2017-03-23] MEDS: CeFAZolin Premix DUPLEX 2,000 MG/50 ML BAG IVPB SCH (00:19)
[2017-03-23] MEDS: *HR* OxyCODONE Immed Rel 5 MG TABLET PO PRN ×2 (00:19→09:11)
[2017-03-23] MEDS ORDERED: *HR* Heparin 5,000 UNIT/ML VIAL SQ SCH ×2 (06:00)
[2017-03-23 06:24] LABS: BUN/Creatinine Ratio 18 (6-26); Blood Urea Nitrogen 15 mg/dL (6-20); Calcium 8.7 mg/dL (8.6-10.3); Carbon Dioxide 26 mEq/L (23-29); Chloride 104 mEq/L (98-107); Glucose 142 mg/dL (70-105); Osmolality,Calculated 285 (280-300); Potassium 3.7 mEq/L (3.5-5.1); Sodium 136 mEq/L (136-145); eGFR For African Americans > 60 (> 60); eGFR For Non-African Americans > 60 (> 60)
[2017-03-23 06:26] LABS: Basophils % 0.3 %; Hematocrit 37.1 % (37.5-50.1); Hemoglobin 12.7 g/dL (12.9-16.9); Immature Granulocytes % 0.5 % (0-4); Lymphocytes # 1.8 K/mcL (0.6-4.6); Lymphocytes % 17.5 %; Mean Corpuscular HGB Conc 34.2 g/dL (31.6-35.5); Mean Corpuscular Hemoglobin 28.6 pg (28.0-33.3); Mean Corpuscular Volume 83.6 fL (83.0-100.0); Mean Platelet Volume 10.4 fL (9.4-12.4); Monocytes # 0.9 K/mcL (0.0-1.3); Neutrophils # 7.6 K/mcL (1.6-8.9); Platelet Count 205 K/mcL (140-400); Red Blood Count 4.44 M/mcL (4.19-5.50); Red Cell Distribution Width 12.9 % (11.5-14.5); Segmented Neutrophils % 72.7 %
--- NOTE | 2017-03-23 07:03 | Discharge Summary ---
Date of Encounter: 03/23/17 Time of Encounter: 07:38 - Discharge Diagnosis (1) Atherosclerosis of [place] arteries of extremities with intermittent claudication, bilateral legs Priority: Primary Status: Chronic (2) Essential hypertension Priority: Secondary Status: Chronic (3) Type 2 diabetes mellitus Priority: Secondary Status: Chronic Qualifiers: Diabetes mellitus complication status: with circulatory complication Diabetes mellitus complication detail: with peripheral angiopathy without gangrene Diabetes mellitus long-term insulin use: with long-term use Qualified Code(s): E11.51 - Type 2 diabetes mellitus with diabetic peripheral angiopathy without gangrene; Z79.4 - department mgr (current) use of insulin; Z79.4 - department mgr (current) use of insulin; Z79.4 - [facility] (current) use of insulin ; Z79.4 - department mgr (current) use of insulin (4) CAD (coronary artery disease), [place] coronary artery Priority: Secondary Status: Chronic Qualifiers: [place] vs. transplanted heart: [place] heart Associated angina: without angina Qualified Code(s): I25.10 - Atherosclerotic heart disease of [place] coronary artery without angina pectoris (5) Chronic disease anemia Priority: Secondary Status: Chronic Comments: The patient has chronic disease anemia with acute expected postoperative blood loss anemia. He is hemodynamically stable without evidence of ongoing blood loss. - Discharge Medications Prescriptions: OxyCODONE/APAP 5/325 [Percocet 5/325 MG] 1 each PO Q6HR PRN 6 Days #24 tablet PRN Reason: POSTOPERATIVE PAIN Home Medications: Glimepiride [Amaryl] 4 mg PO BID 12/05/16 [History] Insulin Human Regular [HumuLIN R] 0 - 10 unit SQ DAILY PRN 12/05/16 [History] Lisinopril [Zestril] 40 mg PO DAILY 12/05/16 [History] Metoprolol [Lopressor] 100 mg PO BID 12/05/16 [History] Omeprazole Magnesium [Prilosec Otc] 20 mg PO DAILY 12/05/16 [History] Pioglitazone [Actos] 45 mg PO DAILY 12/05/16 [History] hydroCHLOROthiazide [Hydrochlorothiazide] 25 mg PO DAILY 12/05/16 [History] Aspirin Enteric Coated [Aspirin EC] 81 mg PO DAILY #30 tablet. 12/08/16 [Rx] Clopidogrel [Plavix] 75 mg PO DAILY #30 tablet 12/08/16 [Rx] Nitroglycerin 0.4 mg SL Q5MIN PRN #15 tab.subl 12/08/16 [Rx] cloNIDine HCl [CloNIDine HCl] 0.1 mg PO BID #60 12/08/16 [Rx] Atorvastatin [Lipitor] 40 mg PO DAILY 03/22/17 [History] OxyCODONE/APAP 5/325 [Percocet 5/325 MG] 1 each PO Q6HR PRN 6 Days #24 tablet [Rx] Allergies/Adverse Reactions: 3 Allergy/AdvReac Type Severity Reaction Status Date / Time No Known Allergies Allergy Verified 03/22/17 07:22 Date of admission: 03/22/17 13:45 Primary care physician: Iliana Almonte CNP Procedure(s) Performed: Right femoral to popliteal artery bypass. Discharging clinician: Narinder Bertrand Anticipated date of discharge: 03/23/17 - Patient Status Disposition: Home, Self-Care Condition: Good Functional capacity at discharge: independent ambulation Overall status at discharge: patient is progressing back to baseline - Discharge Instructions Instructions: Peripheral Vascular Disorders (DC) Follow Up With: Narinder Bertrand MD [Partnered Physician] - 04/30/17 11:00 am Iliana Almonte CNP [Primary Care Provider] - 03/28/17 1:00 pm Additional Instructions: May remove bandages and shower on 03/24/17. No tub baths or swimming until 04/15/17. Wash wounds gently and pat to dry. Apply dry dressing to groin wounds daily for [address] Bertrand at [phone] with questions or concerns - Diet and Activity Activity: increase activity as tolerated Diet: advance to your usual diet, diabetic diet - Hospital Course Hospital course: Mr. Dejesus is a 51 year old male with hypertension, diabetes, coronary artery disease and hyperlipidemia. He was noted to have peripheral vascular disease with diabling claudication. He was admitted on 03/22/17. He underwent a right femoral to popliteal artery bypass. He tolerated the procedure well. He was discharged on postoperative day #1 in stable condition and without complications. - Time Spent with Patient Total time spent providing and/or coordinating discharge services: Exam Vital Signs, Last 4 Hours Temp Pulse Resp BP Pulse Ox 03/23/17 04:07 98.4 F 93 19 141/60 96 General: Present: Conversant, No Apparent Distress HEENT: Present: Pupils equal Cardiac: Present: Reg Rate and Rhythm Lungs: Present: Normal Breath Sounds, No Wheeze, Rales, Rhonchi Neuro: Present: Alert and responsive, Motor nerves grossly intact, Sensory nerves grossly intact Abdomen: Present: Soft, Non-tender Vascular: Present: Normal capillary refill, Pulse, normal, Surgical incisions ( clean and dry, no hematoma, no erythema, no drainage). Absent: Cyanosis, Edema Skin: Present: No rashes noted on visualized skin - VTE Documentation of Mechanical Device: Intermittent pneumatic compression device
[2017-03-23 08:04] VITALS: BP 176/96
[2017-03-23] MEDS: Insulin LISPRO 300 UNITS/3 ML VIAL SQ SCH (08:55)
[2017-03-23] MEDS ORDERED: Aspirin Enteric Coated 81 MG Tablet PO SCH (09:00)
[2017-03-23] MEDS ORDERED: Lisinopril 20 MG TABLET PO SCH (09:00)
[2017-03-23] MEDS ORDERED: hydroCHLOROthiazide 25 MG TABLET PO SCH (09:00)
[2017-03-23] MEDS ORDERED: Metoprolol 100 MG TABLET PO SCH (09:00)
[2017-03-23] MEDS: cloNIDine HCl 0.1 MG TABLET PO SCH (09:09)
== END 2017-03-23 10:42 | disposition home or self-care (01) | DRG 253 ==
LOC: SAMDAY 05:55 → 2NNU 13:45
PROVIDERS: ADMIT Surgery; ATTEND Surgery

== ENCOUNTER 2020-05-05 09:47 | Inpatient (IN) ==
[2020-05-05] MEDS ORDERED: Lidocaine -MPF 4% 5 ML AMPUL ONE (09:55)
[2020-05-05] MEDS ORDERED: Dexamethasone 4 MG/ML VIAL ONE (09:55)
[2020-05-05] MEDS ORDERED: *HR* Propofol 200 MG/20 ML VIAL IVP ONE ×2 (09:55→15:03)
[2020-05-05] MEDS ORDERED: Ondansetron 4 MG/2 ML VIAL ONE (09:55)
[2020-05-05] MEDS ORDERED: *HR* Rocuronium Bromide 50 MG/5 ML VIAL ONE ×3 (09:55→13:12)
[2020-05-05] MEDS ORDERED: *HR* FentaNYL (PF) 100 MCG/2 ML VIAL ONE ×2 (09:55→12:31)
[2020-05-05] MEDS ORDERED: Lidocaine -MPF 2% 2 ML VIAL ONE (09:55)
[2020-05-05] MEDS ORDERED: Heparin 1,000 UNITS/500 mL 500 ML ONE (10:41)
[2020-05-05] MEDS ORDERED: CeFAZolin Syr 2,000MG/20 ML 2,000 MG/20 ML SYRINGE IVPB ONE (10:41)
[2020-05-05] MEDS ORDERED: Vancomycin 1,250 MG/262.5 ML IV.SOLN IVPB ONE ×2 (10:41→23:00)
[2020-05-05] MEDS ORDERED: Ringers Solution, Lactated 1,000 ML IVC SCH (10:45)
[2020-05-05] MEDS ORDERED: *HR* Midazolam HCl 2 MG/2 ML VIAL ONE (10:55)
[2020-05-05] MEDS ORDERED: Ondansetron 4 MG/2 ML VIAL IVP PRN ×2 (11:14→20:10)
[2020-05-05] MEDS ORDERED: *HR* OxyCODONE Immed Rel 5 MG TABLET PO PRN (11:14)
[2020-05-05] MEDS ORDERED: *HR* HYDROmorphone (PF) 1 MG/ML SYRINGE IVP PRN (11:14)
[2020-05-05] MEDS ORDERED: Vancomycin 1,000 MG, Sodium Chloride IRRigation 1,000 ML IR ONE (11:35)
[2020-05-05] MEDS ORDERED: *HR* PHENYLEPHRINE 1,000 MCG/10 ML SYRINGE IVP ONE (11:51)
[2020-05-05] MEDS ORDERED: *HR* Heparin 5,000 UNIT/ML VIAL ONE ×2 (12:44→13:42)
[2020-05-05] MEDS ORDERED: *HR* HYDROMORPHONE 2 MG/ML VIAL ONE (13:00)
[2020-05-05] MEDS ORDERED: Sugammadex Sodium 200 MG/2 ML VIAL IV ONE (14:45)
[2020-05-05] MEDS ORDERED: Dextrose Gel 15 GM/37.5 ML TUBE PO PRN ×2 (16:39)
[2020-05-05] MEDS ORDERED: Acetaminophen 325 MG TABLET PO PRN (16:39)
[2020-05-05] MEDS ORDERED: *HR* HYDROcodone/Acet 5/325 mg TABLET PO PRN (16:39)
[2020-05-05] MEDS ORDERED: *HR* Labetalol 20 MG/4 ML SYRINGE IVP PRN (16:39)
[2020-05-05] MEDS ORDERED: Naloxone 0.4 MG/ML INJ IVP PRN (16:39)
[2020-05-05] MEDS ORDERED: 0.9 % Sodium Chloride 1,000 ML IVC SCH (16:39)
[2020-05-05] MEDS ORDERED: D5% in Water 1,000 ML IVC PRN (16:39)
[2020-05-05] MEDS ORDERED: *HR* Dextrose 50 % in Water (Vial) 50 ML VIAL IVP PRN (16:39)
[2020-05-05] MEDS ORDERED: 0.9 % Sodium Chloride 1,000 ML ONE (16:45)
[2020-05-05] MEDS: *HR* OxyCODONE Immed Rel 5 MG TABLET PO PRN (17:13)
[2020-05-05] MEDS: *HR* Metoprolol 5 MG/5 ML VIAL IVP SCH ×3 (17:13→23:22)
[2020-05-05] MEDS: Insulin LISPRO 300 UNITS/3 ML VIAL SUBQ SCH (17:30)
[2020-05-05] MEDS: CeFAZolin 2 GM/120 ML BAG IVPB SCH (18:52)
[2020-05-05] MEDS ORDERED: Insulin LISPRO 300 UNITS/3 ML VIAL SUBQ SCH (21:00)
[2020-05-06] MEDS: CeFAZolin 2 GM/120 ML BAG IVPB SCH (03:32)
[2020-05-06] MEDS: *HR* OxyCODONE Immed Rel 5 MG TABLET PO PRN (03:32)
[2020-05-06 04:28] LABS: Basophils % 0.3 %; Hematocrit 31.4 % (37.5-50.1); Immature Granulocytes % 0.8 % (0-4); Lymphocytes % 14.8 %; Mean Corpuscular Volume 82.8 fL (83.0-100.0); Mean Platelet Volume 9.9 fL (9.4-12.4); Monocytes # 0.9 K/mcL (0.0-1.3); Monocytes % 6.2 %; Neutrophils # 10.7 K/mcL (1.6-8.9); Platelet Count 228 K/mcL (140-400); Red Blood Count 3.79 M/mcL (4.19-5.50); Red Cell Distribution Width 13.1 % (11.5-14.5); Segmented Neutrophils % 77.9 %; White Blood Count 13.8 K/mcL (4.3-11.1)
[2020-05-06 04:44] LABS: BUN/Creatinine Ratio 15 (6-26); Blood Urea Nitrogen 15 mg/dL (6-20); Calcium 8.7 mg/dL (8.6-10.3); Carbon Dioxide 25 mEq/L (23-29); Chloride 99 mEq/L (98-107); Glucose 214 mg/dL (70-105); Osmolality,Calculated 287 (280-300); Potassium 3.6 mEq/L (3.5-5.1); Sodium 135 mEq/L (136-145); eGFR For African Americans > 60 (> 60); eGFR For Non-African Americans > 60 (> 60)
[2020-05-06] MEDS: *HR* Metoprolol 5 MG/5 ML VIAL IVP SCH (05:52)
[2020-05-06] MEDS ORDERED: *HR* Heparin 5,000 UNIT/ML VIAL SQ SCH (06:00)
[2020-05-06 07:18] VITALS: BP 150/85
[2020-05-06] MEDS: Insulin LISPRO 300 UNITS/3 ML VIAL SUBQ SCH ×2 (07:29→11:09)
[2020-05-06] MEDS ORDERED: cloNIDine HCL 0.1 MG TABLET PO SCH (09:00)
[2020-05-06] MEDS ORDERED: Metoprolol 100 MG TABLET PO SCH (09:00)
== END 2020-05-06 13:08 | disposition home or self-care (01) | DRG 271 ==
LOC: SAMDAY 09:47 → 2NNU 16:37 → CDU 05-06 11:39
PROVIDERS: ADMIT Surgery; ATTEND Surgery

== ENCOUNTER 2020-09-23 06:38 | Inpatient (IN) ==
[2020-09-13 14:13] LABS: Prothrombin Time 11.8 Seconds (9.4-12.1)
[2020-09-13 14:16] LABS: Activated Partial Thrombo Time 24.8 Seconds (26.0-36.0)
[2020-09-13 14:19] LABS: BUN/Creatinine Ratio 17 (6-26); Blood Urea Nitrogen 15 mg/dL (6-20); Calcium 9.7 mg/dL (8.6-10.3); Carbon Dioxide 28 mEq/L (23-29); Chloride 99 mEq/L (98-107); Glucose 258 mg/dL (70-105); Osmolality,Calculated 292 (280-300); Potassium 3.5 mEq/L (3.5-5.1); Sodium 136 mEq/L (136-145); eGFR For African Americans > 60 (> 60); eGFR For Non-African Americans > 60 (> 60)
[2020-09-13 14:35] LABS: Basophils # 0.1 K/mcL (0.0-0.2); Basophils % 0.8 %; Eosinophils # 0.1 K/mcL (0.0-0.6); Eosinophils % 0.5 %; Hematocrit 42.1 % (37.5-50.1); Hemoglobin 14.3 g/dL (12.9-16.9); Immature Granulocytes % 0.6 % (0-4); Lymphocytes # 2.3 K/mcL (0.6-4.6); Mean Corpuscular Hemoglobin 29.5 pg (28.0-33.3); Monocytes # 0.7 K/mcL (0.0-1.3); Neutrophils # 7.7 K/mcL (1.6-8.9); Platelet Count 275 K/mcL (140-400); Red Blood Count 4.84 M/mcL (4.19-5.50); Red Cell Distribution Width 12.7 % (11.5-14.5); Segmented Neutrophils % 71.1 %; White Blood Count 10.8 K/mcL (4.3-11.1)
[2020-09-13 14:58] LABS: Estimated Average Glucose 189 mg/dl; Hemoglobin A1C 8.2 %
[2020-09-23] MEDS ORDERED: Ringers Solution, Lactated 1,000 ML IVC SCH (07:00)
[2020-09-23] MEDS ORDERED: CeFAZolin Syr 2,000MG/20 ML 2,000 MG/20 ML SYRINGE IVPB ONE (07:00)
[2020-09-23] MEDS ORDERED: Vancomycin 1,250 MG/262.5 ML IV.SOLN IVPB ONE ×2 (07:05→20:00)
[2020-09-23] MEDS ORDERED: *HR* Propofol 200 MG/20 ML VIAL IVP ONE (07:19)
[2020-09-23] MEDS ORDERED: *HR* Rocuronium Bromide 50 MG/5 ML VIAL ONE (07:20)
[2020-09-23] MEDS ORDERED: Ondansetron 4 MG/2 ML VIAL ONE (07:20)
[2020-09-23] MEDS ORDERED: Lidocaine -MPF 2% 2 ML VIAL ONE (07:20)
[2020-09-23] MEDS ORDERED: Heparin 1,000 UNITS/500 mL 1,000 ML ONE (07:22)
[2020-09-23] MEDS ORDERED: Vancomycin 1,000 MG VIAL ONE (07:23)
[2020-09-23] MEDS ORDERED: *HR* Remifentanil 1 MG VIAL IVP ONE (07:41)
[2020-09-23] MEDS ORDERED: *HR* Phenylephrine 10 MG/ML VIAL ONE (07:42)
[2020-09-23] MEDS ORDERED: Ondansetron 4 MG/2 ML VIAL IVP PRN ×2 (07:54→14:55)
[2020-09-23] MEDS ORDERED: *HR* OxyCODONE Immed Rel 5 MG TABLET PO PRN ×2 (07:54→14:55)
[2020-09-23] MEDS ORDERED: *HR* HYDROmorphone PF 0.5 MG/0.5 ML SYRINGE IVP PRN (07:54)
[2020-09-23] MEDS ORDERED: Promethazine 6.25 MG in Water for inj. (sterile) 20 ML IVPB PRN (07:54)
[2020-09-23] MEDS ORDERED: *HR* FentaNYL (PF) 100 MCG/2 ML VIAL ONE (08:01)
[2020-09-23] MEDS ORDERED: *HR* Midazolam HCl 2 MG/2 ML VIAL ONE ×2 (08:12→08:16)
[2020-09-23] MEDS ORDERED: Vancomycin 1,000 MG, Sodium Chloride IRRigation 1,000 ML IR ONE (08:15)
[2020-09-23] MEDS ORDERED: *HR* Heparin 5,000 UNIT/ML VIAL ONE (09:18)
[2020-09-23] MEDS ORDERED: Neostigmine Methylsulfate 3 MG/3 ML SYRINGE ONE (10:09)
[2020-09-23] MEDS ORDERED: *HR* HYDROMORPHONE 2 MG/ML VIAL ONE (12:18)
[2020-09-23] MEDS ORDERED: *HR* Dextrose 50 % in Water (Vial) 50 ML VIAL IVP PRN ×2 (13:40→19:10)
[2020-09-23] MEDS ORDERED: Dextrose Gel 15 GM/37.5 ML TUBE PO PRN ×4 (13:40→19:10)
[2020-09-23] MEDS ORDERED: D5% in Water 1,000 ML IVC PRN ×2 (13:40→19:10)
[2020-09-23] MEDS ORDERED: Naloxone 0.4 MG/ML INJ IVP PRN (14:55)
[2020-09-23] MEDS ORDERED: Acetaminophen 325 MG TABLET PO PRN (14:55)
[2020-09-23] MEDS ORDERED: CeFAZolin 2 GM/120 ML BAG IVPB SCH (14:55)
[2020-09-23] MEDS ORDERED: 0.9 % Sodium Chloride 1,000 ML IVC SCH (14:55)
[2020-09-23] MEDS ORDERED: *HR* Labetalol 20 MG/4 ML SYRINGE IVP PRN (14:55)
[2020-09-23] MEDS: Gabapentin 400 MG CAPSULE PO SCH ×2 (15:40→20:41)
[2020-09-23] MEDS: CeFAZolin 2 GM/120 ML BAG IVPB SCH ×2 (15:51→23:44)
[2020-09-23] MEDS: *HR* Metoprolol 5 MG/5 ML VIAL IVP SCH ×2 (17:25→23:43)
[2020-09-23] MEDS: *HR* HYDROcodone/Acet 5/325 mg TABLET PO PRN (20:42)
[2020-09-23] MEDS ORDERED: Insulin LISPRO 300 UNITS/3 ML VIAL SUBQ SCH (21:00)
[2020-09-24] MEDS: *HR* Metoprolol 5 MG/5 ML VIAL IVP SCH (05:31)
[2020-09-24] MEDS: *HR* HYDROcodone/Acet 5/325 mg TABLET PO PRN (05:39)
[2020-09-24] MEDS ORDERED: *HR* Heparin 5,000 UNIT/ML VIAL SQ SCH ×2 (06:00)
[2020-09-24 06:49] VITALS: BP 169/98; PULSE 85; TEMP 98.2; O2SAT 95
[2020-09-24] MEDS: Gabapentin 400 MG CAPSULE PO SCH (07:24)
[2020-09-24] MEDS ORDERED: Insulin LISPRO 300 UNITS/3 ML VIAL SUBQ SCH (07:30)
[2020-09-24] MEDS ORDERED: *HR* Rivaroxaban 10 MG TABLET PO ONE (07:56)
[2020-09-24] MEDS ORDERED: Metoprolol 100 MG TABLET PO SCH (09:00)
[2020-09-24] MEDS ORDERED: hydroCHLOROthiazide 25 MG TABLET PO SCH (09:00)
[2020-09-24] MEDS ORDERED: Multivit/Ca/Min/Fe/FA 1 TAB TABLET PO SCH (09:00)
[2020-09-24] MEDS ORDERED: cloNIDine HCL 0.1 MG TABLET PO SCH (09:00)
== END 2020-09-24 11:50 | disposition home or self-care (01) | DRG 254 ==
LOC: SAMDAY 06:38 → 2NNU 14:18
PROVIDERS: ADMIT Surgery; ATTEND Surgery

== ENCOUNTER 2021-10-27 10:00 | Inpatient (IN) ==
[2021-10-27] MEDS ORDERED: Heparin 1,000 UNITS/500 mL 500 ML ONE ×2 (10:28→16:48)
[2021-10-27] MEDS ORDERED: *HR* Vasopressin 20 UNIT/ML VIAL ONE (10:28)
[2021-10-27] MEDS ORDERED: CeFAZolin Syr 2,000MG/20 ML 2,000 MG/20 ML SYRINGE IVPB ONE (10:28)
[2021-10-27] MEDS ORDERED: Lidocaine -MPF 2% 5 ML VIAL ONE (10:29)
[2021-10-27] MEDS ORDERED: *HR* Rocuronium Bromide 50 MG/5 ML VIAL ONE ×2 (10:29→12:47)
[2021-10-27] MEDS ORDERED: Ondansetron 4 MG/2 ML VIAL ONE (10:29)
[2021-10-27] MEDS ORDERED: *HR* Midazolam HCl 2 MG/2 ML VIAL ONE (10:31)
[2021-10-27] MEDS ORDERED: *HR* Propofol 200 MG/20 ML VIAL IVP ONE (10:31)
[2021-10-27] MEDS ORDERED: *HR* FentaNYL (PF) 100 MCG/2 ML VIAL ONE (10:31)
[2021-10-27] MEDS ORDERED: Ketamine HCL *QUVA* 50mg (1mL) SYRINGE ONE (10:32)
[2021-10-27] MEDS ORDERED: Ringers Solution, Lactated 1,000 ML IVC SCH (11:00)
[2021-10-27] MEDS ORDERED: *HR* OxyCODONE Immed Rel 5 MG TABLET PO PRN ×3 (11:03→18:21)
[2021-10-27] MEDS ORDERED: *HR* HYDROmorphone PF 0.5 MG/0.5 ML SYRINGE IVP PRN (11:03)
[2021-10-27] MEDS ORDERED: Promethazine 6.25 MG in Water for inj. (sterile) 20 ML IVPB PRN (11:03)
[2021-10-27] MEDS ORDERED: Ondansetron 4 MG/2 ML VIAL IVP PRN ×3 (11:03→18:21)
[2021-10-27] MEDS ORDERED: Vancomycin 1,000 MG, Sodium Chloride IRRigation 1,000 ML IR ONE (11:40)
[2021-10-27] MEDS ORDERED: *HR* Magnesium Sulfate 1 GM/2 ML VIAL ONE (12:49)
[2021-10-27] MEDS ORDERED: *HR* Heparin 5,000 UNIT/ML VIAL ONE ×2 (13:59→15:39)
[2021-10-27] MEDS ORDERED: Sugammadex Sodium 200 MG/2 ML VIAL IV ONE (14:17)
[2021-10-27] MEDS ORDERED: *HR* HYDROMORPHONE 2 MG/ML VIAL ONE (16:01)
[2021-10-27] MEDS ORDERED: Bupivacaine-MPF 0.25% 10 ML VIAL ONE (16:48)
[2021-10-27] MEDS ORDERED: *HR* HYDROcodone/Acet 5/325 mg TABLET PO PRN (17:14)
[2021-10-27] MEDS ORDERED: Acetaminophen 325 MG TABLET PO PRN ×2 (17:14→18:21)
[2021-10-27] MEDS ORDERED: *HR* Labetalol 20 MG/4 ML SYRINGE IVP PRN ×2 (17:14→18:21)
[2021-10-27] MEDS ORDERED: Naloxone 0.4 MG/ML INJ IVP PRN ×2 (17:14→18:21)
[2021-10-27] MEDS ORDERED: 0.9 % Sodium Chloride 1,000 ML IVC SCH ×2 (17:15→18:21)
[2021-10-27] MEDS ORDERED: *HR* Dextrose 50 % in Water (Syg) 50 ML SYRINGE IVP PRN ×2 (17:18→18:21)
[2021-10-27] MEDS ORDERED: Dextrose Gel 15 GM/37.5 ML TUBE PO PRN ×4 (17:18→18:21)
[2021-10-27] MEDS ORDERED: D5% in Water 1,000 ML IVC PRN ×2 (17:18→18:21)
[2021-10-27] MEDS ORDERED: *HR* Metoprolol 5 MG/5 ML VIAL IVP SCH (18:00)
[2021-10-27] MEDS: cloNIDine HCL 0.1 MG TABLET PO SCH (19:51)
[2021-10-27] MEDS: Gabapentin 400 MG CAPSULE PO SCH (19:51)
[2021-10-27] MEDS: *HR* Metoprolol 5 MG/5 ML VIAL IVP SCH ×2 (19:51→23:46)
[2021-10-27] MEDS: CeFAZolin 2 GM/120 ML BAG IVPB SCH (19:54)
[2021-10-27] MEDS: *HR* HYDROcodone/Acet 5/325 mg TABLET PO PRN (19:55)
[2021-10-27] MEDS ORDERED: CeFAZolin 2 GM/120 ML BAG IVPB SCH (21:00)
[2021-10-27] MEDS ORDERED: Insulin LISPRO 300 UNITS/3 ML VIAL SUBQ SCH ×2 (21:00)
[2021-10-28 04:51] LABS: Basophils % 0.4 %; Hematocrit 27.6 % (37.5-50.1); Immature Granulocytes % 0.5 % (0-4); Lymphocytes # 1.8 K/mcL (0.6-4.6); Lymphocytes % 21.3 %; Mean Corpuscular HGB Conc 33.3 g/dL (31.6-35.5); Mean Corpuscular Hemoglobin 29.4 pg (28.0-33.3); Mean Corpuscular Volume 88.2 fL (83.0-100.0); Mean Platelet Volume 10.6 fL (9.4-12.4); Monocytes # 0.7 K/mcL (0.0-1.3); Monocytes % 7.8 %; Platelet Count 237 K/mcL (140-400); Red Blood Count 3.13 M/mcL (4.19-5.50); Red Cell Distribution Width 13.2 % (11.5-14.5); White Blood Count 8.5 K/mcL (4.3-11.1)
[2021-10-28 04:52] LABS: Hemoglobin 9.2 g/dL (12.9-16.9)
[2021-10-28 05:00] LABS: BUN/Creatinine Ratio 17 (6-26); Blood Urea Nitrogen 12 mg/dL (6-20); Calcium 8.4 mg/dL (8.6-10.3); Carbon Dioxide 27 mEq/L (23-29); Chloride 106 mEq/L (98-107); Glucose 118 mg/dL (70-105); Osmolality,Calculated 289 (280-300); Potassium 3.8 mEq/L (3.5-5.1); Sodium 139 mEq/L (136-145)
[2021-10-28] MEDS: CeFAZolin 2 GM/120 ML BAG IVPB SCH (05:56)
[2021-10-28] MEDS ORDERED: *HR* Heparin 5,000 UNIT/ML VIAL SQ SCH ×2 (06:00)
[2021-10-28] MEDS: *HR* Metoprolol 5 MG/5 ML VIAL IVP SCH (06:01)
[2021-10-28 06:52] VITALS: TEMP 99.9
[2021-10-28] MEDS ORDERED: Insulin LISPRO 300 UNITS/3 ML VIAL SUBQ SCH ×2 (07:30)
[2021-10-28] MEDS ORDERED: Multivit/Ca/Min/Fe/FA 1 TAB TABLET PO SCH (09:00)
[2021-10-28] MEDS ORDERED: hydroCHLOROthiazide 25 MG TABLET PO SCH (09:00)
[2021-10-28] MEDS ORDERED: Metoprolol 100 MG TABLET PO SCH (09:00)
[2021-10-28] MEDS ORDERED: Aspirin Enteric Coated 81 MG Tablet PO SCH (09:00)
[2021-10-28 09:34] VITALS: BP 160/71; O2SAT 97
[2021-10-28] MEDS: Gabapentin 400 MG CAPSULE PO SCH (09:36)
[2021-10-28] MEDS: cloNIDine HCL 0.1 MG TABLET PO SCH (09:37)
[2021-10-28 11:00] VITALS: PULSE 84
[2021-10-28] MEDS: *HR* HYDROcodone/Acet 5/325 mg TABLET PO PRN (13:38)
== END 2021-10-28 13:50 | disposition home or self-care (01) | DRG 181 ==
LOC: SAMDAY 10:00 → 2NNU 18:19
PROVIDERS: ADMIT Surgery; ATTEND Surgery